=== PATIENT | female | born 1980 | race Caucasian/White ===

== ENCOUNTER → 2018-04-05 08:23 | Outpatient (CLI) | payer OTHER, SELFPAY | PROVIDERS: PCP Family Medicine; Visit Provider Advanced Practice Midwife | DX: O24.419 Gestational diabetes mellitus in pregnancy, unspecified control (principal); Z3A.36 36 weeks gestation of pregnancy | CPT/HCPCS: 59025 ==

== ENCOUNTER → 2018-04-05 14:10 | Outpatient (REF) | payer OTHER, SELFPAY | LOC: LBN 14:10 | PROVIDERS: PCP Family Medicine; Visit Provider Advanced Practice Midwife | DX: Z36.85 Encounter for antenatal screening for Streptococcus B (principal); Z34.93 Encounter for supervision of normal pregnancy, unspecified, third trimester | CPT/HCPCS: 87081 ==

== ENCOUNTER → 2018-04-09 08:20 | Outpatient (CLI) | payer OTHER, SELFPAY | PROVIDERS: PCP Family Medicine; Visit Provider Advanced Practice Midwife | DX: O24.419 Gestational diabetes mellitus in pregnancy, unspecified control (principal); Z3A.36 36 weeks gestation of pregnancy | CPT/HCPCS: 59025 ==

== ENCOUNTER → 2018-04-12 09:29 | Outpatient (CLI) | payer OTHER, SELFPAY | PROVIDERS: PCP Family Medicine; Visit Provider Midwife | DX: O24.410 Gestational diabetes mellitus in pregnancy, diet controlled (principal); O36.63X1 Maternal care for excessive fetal growth, third trimester, fetus 1 | CPT/HCPCS: 59025 ==

== ENCOUNTER → 2018-04-16 09:50 | Outpatient (CLI) | payer OTHER, SELFPAY | PROVIDERS: PCP Family Medicine; Visit Provider Advanced Practice Midwife | DX: O24.419 Gestational diabetes mellitus in pregnancy, unspecified control (principal); Z3A.37 37 weeks gestation of pregnancy | CPT/HCPCS: 59025 ==

== ENCOUNTER → 2018-04-23 09:18 | Outpatient (CLI) | payer OTHER, SELFPAY | PROVIDERS: PCP Family Medicine; Visit Provider Midwife | DX: O24.419 Gestational diabetes mellitus in pregnancy, unspecified control (principal); Z3A.38 38 weeks gestation of pregnancy | CPT/HCPCS: 59025 ==

== ENCOUNTER → 2018-05-03 02:20 | Outpatient (CLI) | payer OTHER, SELFPAY ==
--- NOTE | 2018-05-03 09:38 | DI.REPORT_ITS ---
SYMPTOM/DIAGNOSIS: ? RETAINED PRODUCTS OF CONCEPTION, POST , 086.12 PELVIC ULTRASOUND: Transabdominal and transvaginal examination was performed. The uterus measures 15.3 cm. in length by 8.1 cm. AP by 8.8 cm. transverse. There is complex fluid seen within the endometrial canal. There do appear to be areas of soft tissue distributed within the fluid and along the endometrium. The endometrium and endometrial canal fluid measures 3.4 cm. in diameter. No definite increased blood flow was identified. The right ovary was not visualized transabdominally or transvaginally. The left ovary measures 2.5 by 1.6 by 2.6 cm. and is grossly unremarkable. No free pelvic fluid is appreciated. IMPRESSION: Heterogeneous material seen within the endometrial canal in this patient. The findings are suspicious for hemorrhage. Retained products of conception should also be considered in this patient.
[2018-05-03 10:44] LABS: HCT 36.3 % (36.0-46.0); Mean Corp. HGB Concentration 33.1 g/dL (32.0-36.0); Mean Corpuscular Hemoglobin 28.4 pg (27.0-33.0); Mean Corpuscular Volume 85.8 fL (80-95); Mean Platelet Volume 8.9 fL (8.0-11.0); Platelet Count 354 x1000/uL (130-400); RBC 4.23 m/cumm (4.00-5.20); RBC Distribution Width 15.3 % (11.7-14.6); White Blood Cell Count 8.82 k/cumm (4.4-10.8)
== END ==
PROVIDERS: Advanced Practice Midwife; PCP Family Medicine; Visit Provider Advanced Practice Midwife
DX: O86.12 Endometritis following delivery (principal); N93.9 Abnormal uterine and vaginal bleeding, unspecified; O72.2 Delayed and secondary postpartum hemorrhage
CPT/HCPCS: 36415; 85027; 76830; 76856

== ENCOUNTER 2019-04-22 02:07 | Outpatient (CLI) | payer BC, SELFPAY ==
[2019-04-22 08:35] LABS: Abs Immature Grans 0.02 k/cumm (0.0-0.09); Absolute Basophil Count 0.01 k/cumm (0.0-0.2); Absolute Eosinophil Count 0.15 k/cumm (0.0-0.7); Absolute Lymphocyte Count 2.81 k/cumm (1.2-3.4); Absolute Monocyte Count 0.47 k/cumm (0.11-0.7); Absolute Neutrophil Count 4.05 k/cumm (1.2-6.7); Basophils % 0.1; HCT 37.9 % (36.0-46.0); HGB 12.7 g/dL (12.0-15.5); Immature Grans % 0.3; Lymphocytes % 37.4; Mean Corp. HGB Concentration 33.5 g/dL (32.0-36.0); Mean Corpuscular Hemoglobin 27.8 pg (27.0-33.0); Mean Corpuscular Volume 82.9 fL (80-95); Mean Platelet Volume 9.4 fL (8.0-11.0); Monocytes % 6.3; Neutrophils % 53.9; Platelet Count 329 x1000/uL (130-400); RBC 4.57 m/cumm (4.00-5.20); RBC Distribution Width 14.3 % (11.7-14.6); White Blood Cell Count 7.51 k/cumm (4.4-10.8)
[2019-04-22 09:02] LABS: Diff Comment Diff Reviewed; RBC Morphology Normal
[2019-04-22 09:23] LABS: ALT 17 U/L (12-78); AST 13 U/L (15-37); Albumin 3.4 g/dL (3.4-5.0); Alkaline Phosphatase 71 U/L (46-116); Anion Gap 9.3 mmol/L (3-11); BUN 14 mg/dL (7-18); Bilirubin, Total 0.4 mg/dL (0.2-1.0); CO2 25.7 mmol/L (21.0-32.0); CREATININE 0.83 mg/dL (0.55-1.02); Calcium 8.4 mg/dL (8.5-10.1); Calculated LDL 125 mg/dL; Chloride 103 mmol/L (98-107); Cholesterol 200 mg/dL (50-200); Glucose 99 mg/dL (70-100); HDL Cholesterol 56 mg/dL (40-60); Potassium 3.8 mmol/L (3.5-5.1); Sodium 138 mmol/L (136-145); Triglyceride 99 mg/dL (30-150)
== END 2019-04-22 02:27 ==
PROVIDERS: PCP Family Medicine; Visit Provider Family Medicine
DX: Z00.00 Encounter for general adult medical examination without abnormal findings (principal); Z13.220 Encounter for screening for lipoid disorders; Z13.0 Encounter for screening for diseases of the blood and blood-forming organs and certain disorders involving the immune mechanism; Z13.228 Encounter for screening for other metabolic disorders
CPT/HCPCS: 36415; 80053; 80061; 83721; 85025

== ENCOUNTER 2019-06-06 12:04 | Outpatient (CLI) | payer BC, SELFPAY ==
[2019-06-06 13:07] LABS: Glucose,1 Hr (Glucola) 132 mg/dL (80-140)
[2019-06-06 13:19] LABS: Abs Immature Grans 0.02 k/cumm (0.0-0.09); Absolute Basophil Count 0.02 k/cumm (0.0-0.2); Absolute Eosinophil Count 0.08 k/cumm (0.0-0.7); Absolute Lymphocyte Count 2.12 k/cumm (1.2-3.4); Absolute Monocyte Count 0.47 k/cumm (0.11-0.7); Absolute Neutrophil Count 5.51 k/cumm (1.2-6.7); Basophils % 0.2; HCT 35.3 % (36.0-46.0); HGB 11.9 g/dL (12.0-15.5); Immature Grans % 0.2; Lymphocytes % 25.8; Mean Corp. HGB Concentration 33.7 g/dL (32.0-36.0); Mean Corpuscular Hemoglobin 28.2 pg (27.0-33.0); Mean Corpuscular Volume 83.6 fL (80-95); Mean Platelet Volume 9.3 fL (8.0-11.0); Monocytes % 5.7; Neutrophils % 67.1; Platelet Count 341 x1000/uL (130-400); RBC 4.22 m/cumm (4.00-5.20); RBC Distribution Width 13.8 % (11.7-14.6); White Blood Cell Count 8.22 k/cumm (4.4-10.8)
[2019-06-06 13:40] LABS: *AMPHETAMINES SCREEN URINE Negative (Negative); *BARBITURATES SCREEN URINE Negative (Negative); *BENZODIAZEPINES SCREEN URINE Negative (Negative); Cannabinoids THC Negative (Negative); Cocaine Screen,Urine Negative (Negative); METHADONE URINE SCREEN Negative (Negative); OPIATES URINE SCREEN Negative (Negative)
[2019-06-06 13:44] LABS: TSH (W/Ref FT4) 1.55 uIU/mL (0.36-3.74)
[2019-06-06 13:45] LABS: Tricyclic Antidepressants Negative (Negative)
[2019-06-09 10:35] LABS: Varicella IgG Antibody Positive
[2019-06-09 11:56] LABS: Rubella IgG Ab (UVM) Positive
[2019-06-09 13:35] LABS: Hepatitis B Surface Ag Negative (NEGAT)
[2019-06-09 13:48] LABS: HIV-1/2 Ag & Ab Screen Negative (NEGAT); Hepatitis C Ab w Rflx HCV PCR Negative (NEGAT)
[2019-06-09 15:35] LABS: Syphilis Total Ab w/Reflex Nonreactive (Nonreactive)
[2019-06-11 10:45] LABS: Buprenorphine Negative; Norbuprenorphine Negative
== END 2019-06-06 12:24 ==
PROVIDERS: PCP Family Medicine; Visit Provider Advanced Practice Midwife
DX: Z34.91 Encounter for supervision of normal pregnancy, unspecified, first trimester (principal); Z11.4 Encounter for screening for human immunodeficiency virus [HIV]; Z11.59 Encounter for screening for other viral diseases; Z01.84 Encounter for antibody response examination
CPT/HCPCS: 36415; 80307; 82950; 86787; 86803; 86850; 86900; 86901; 87340; 87389; 84443; 85025; 86762; 86780; 87086

== ENCOUNTER 2019-06-06 12:34 | Outpatient (REF) | payer BC, SELFPAY ==
--- NOTE | 2019-06-06 11:30 | PAPFT_PTH ---
PATIENT: Nathalie Menjivar LOC: [facility] U#:[id number] AGE/SX: 39/F ROOM: RE06/06/[address]: Elma Mora RN : 1980 BED: DIS: 06/06/2019 SPEC #: [id number] RECD: 06/09/19 12:45 STATUS: AMBER REQ #: [id number] FREDERICK: 06/06/19 11:[address]: Elma Mora DEPT: [facility] RECD BY: Tash Lagunas ENTERED: 06/09/19 12:45 SP TYPE: PAPFT OTHR DR: Larry Mcbride MD Tissues: 1 - CX/ENDOCX FOR PAP SMEARS Procedures: PAP THIN PREP/UVM Screening HPV DNA PROBE Comments: [id number]
[2019-06-09 15:46] LABS: Chlamydia Result Negative (Negative); GC Result Negative (Negative); Specimen Description CERVIX
== END 2019-06-06 12:54 ==
LOC: LBN 12:34
PROVIDERS: PCP Family Medicine; Visit Provider Advanced Practice Midwife
DX: Z34.91 Encounter for supervision of normal pregnancy, unspecified, first trimester (principal); Z11.3 Encounter for screening for infections with a predominantly sexual mode of transmission; Z12.4 Encounter for screening for malignant neoplasm of cervix; Z11.51 Encounter for screening for human papillomavirus (HPV)
CPT/HCPCS: 87491; 87591; 88142; 87624

== ENCOUNTER 2019-07-04 12:16 | Outpatient (CLI) | payer BC, SELFPAY ==
[2019-07-07 12:34] LABS: AFP 19.5 ng/mL; Cigarette smoking status non-smoker; GA used in risk estimate Scan estimate; INHIBIN 78 pg/mL; IVF Pregnancy No; Initial or repeat testing Initial testing; Insulin dependent diabetes No; Maternal Weight 232 lbs; Number of Fetuses 1; Physician Phone Number 802-748-7300; Prev Down(T21)/Trisomy Pregnan No; Prev Pregnancy w/NTD No; RECOMMENDED FOLLOW UP None.; Results Summary Normal risk; hCG, TOTAL 27.9 IU/mL; hCG, TOTAL MoM 1.06 MoM; uE3 1.17 ng/mL; uE3 MoM 1.66 MoM
== END 2019-07-04 12:36 ==
PROVIDERS: PCP Family Medicine; Visit Provider Advanced Practice Midwife
DX: Z34.92 Encounter for supervision of normal pregnancy, unspecified, second trimester (principal); Z36.89 Encounter for other specified antenatal screening
CPT/HCPCS: 36415; 81511

== ENCOUNTER 2019-07-23 00:37 | Outpatient (CLI) | payer BC, SELFPAY ==
--- NOTE | 2019-07-23 09:42 | DI.US_ITS ---
EXAM: US OB 2-3 TRIMESTER CLINICAL HISTORY: anatomy survey @ 18 wks Z34.90 SUPERVISION NORMAL TECHNIQUE: Ultrasound performed using standard protocol. COMPARISON: PELVIS TRANSVAG from 05/03/2018 FINDINGS: The fetus is in breech position during the exam. The placenta is anterior. The biometric measureme nts correspond to 19 weeks 0 days. No abnormalities are seen. The amniotic fluid appears visu ally normal. IMPRESSION: survey is within normal limits.
== END 2019-07-23 00:57 ==
PROVIDERS: PCP Family Medicine; Visit Provider Advanced Practice Midwife
DX: Z34.92 Encounter for supervision of normal pregnancy, unspecified, second trimester (principal)
CPT/HCPCS: 76805

== ENCOUNTER 2019-09-26 10:16 | Outpatient (CLI) | payer BC, SELFPAY ==
[2019-09-26 10:42] LABS: HCT 32.8 % (36.0-46.0); HGB 10.7 g/dL (12.0-15.5); Mean Corp. HGB Concentration 32.6 g/dL (32.0-36.0); Mean Corpuscular Hemoglobin 28.1 pg (27.0-33.0); Mean Corpuscular Volume 86.1 fL (80-95); Mean Platelet Volume 8.9 fL (8.0-11.0); Platelet Count 292 x1000/uL (130-400); RBC 3.81 m/cumm (4.00-5.20); RBC Distribution Width 14.2 % (11.7-14.6); White Blood Cell Count 8.58 k/cumm (4.4-10.8)
[2019-09-26 10:54] LABS: Glucose,1 Hr (Glucola) 156 mg/dL (80-140)
== END 2019-09-26 10:36 ==
PROVIDERS: PCP Family Medicine; Visit Provider Advanced Practice Midwife
DX: Z34.93 Encounter for supervision of normal pregnancy, unspecified, third trimester (principal)
CPT/HCPCS: 36415; 82950; 85027; 86850; 90384

== ENCOUNTER 2019-11-07 03:31 | Outpatient (CLI) | payer BC, SELFPAY ==
--- NOTE | 2019-11-07 07:45 | DI.US_ITS ---
EXAM: US OB BETZAIDA UMBILICAL ARTERY CLINICAL HISTORY: GDM, , Z34.90 TECHNIQUE: Ultrasound performed using standard protocol. COMPARISON: US OB 2-3 TRIMESTER from 07/23/2019 FINDINGS: The fetus was in transverse position, head toward the maternal left. The placenta is anterior. The biometric measurements correspond to 35 weeks 5 days which is slightly but above the expected range. The estimated weight is 2857 grams corresponding to the 91st percentile. The amniotic fluid index measures 21.0. Umbilical artery Doppler was performed. Values range between the 50th and 95th percentile. IMPRESSION: Fetus is mildly large for dates. Umbilical artery measurements are within the normal range. DATA REPOSITORY:
== END 2019-11-07 03:51 ==
PROVIDERS: PCP Family Medicine; Visit Provider Obstetrics & Gynecology
DX: O24.419 Gestational diabetes mellitus in pregnancy, unspecified control (principal); O36.63X0 Maternal care for excessive fetal growth, third trimester, not applicable or unspecified; Z3A.35 35 weeks gestation of pregnancy
CPT/HCPCS: 76816; 76820

== ENCOUNTER 2019-11-21 08:36 | Outpatient (CLI) | payer BC, SELFPAY | END 2019-11-21 08:56 | PROVIDERS: PCP Family Medicine; Visit Provider Advanced Practice Midwife | DX: O24.410 Gestational diabetes mellitus in pregnancy, diet controlled (principal); Z3A.35 35 weeks gestation of pregnancy | CPT/HCPCS: 59025 ==

== ENCOUNTER 2019-11-21 10:05 | Outpatient (CLI) | payer BC, SELFPAY ==
[2019-11-21 12:00] LABS: HCT 34.6 % (36.0-46.0); HGB 11.1 g/dL (12.0-15.5); Mean Corp. HGB Concentration 32.1 g/dL (32.0-36.0); Mean Corpuscular Hemoglobin 26.5 pg (27.0-33.0); Mean Corpuscular Volume 82.6 fL (80-95); Platelet Count 293 x1000/uL (130-400); RBC 4.19 m/cumm (4.00-5.20); RBC Distribution Width 14.7 % (11.7-14.6); White Blood Cell Count 8.46 k/cumm (4.4-10.8)
[2019-11-21 14:54] LABS: *AMPHETAMINES SCREEN URINE Negative (Negative); *BARBITURATES SCREEN URINE Negative (Negative); *BENZODIAZEPINES SCREEN URINE Negative (Negative); Cannabinoids THC Negative (Negative); Cocaine Screen,Urine Negative (Negative); METHADONE URINE SCREEN Negative (Negative); OPIATES URINE SCREEN Negative (Negative)
[2019-11-21 14:56] LABS: Tricyclic Antidepressants Negative (Negative)
[2019-11-26 08:33] LABS: Buprenorphine Negative; Norbuprenorphine Negative
== END 2019-11-21 10:25 ==
PROVIDERS: PCP Family Medicine; Visit Provider Advanced Practice Midwife
DX: Z34.93 Encounter for supervision of normal pregnancy, unspecified, third trimester (principal)
CPT/HCPCS: 36415; 80307; 85027

== ENCOUNTER 2019-11-28 09:01 | Outpatient (CLI) | payer BC, SELFPAY | END 2019-11-28 09:21 | PROVIDERS: PCP Family Medicine; Visit Provider Advanced Practice Midwife | DX: O24.410 Gestational diabetes mellitus in pregnancy, diet controlled (principal); Z3A.37 37 weeks gestation of pregnancy | CPT/HCPCS: 59025; 87081 ==

== ENCOUNTER 2019-12-01 10:06 | Observation (INO) | payer BC, SELFPAY | END 2019-12-01 11:40 | disposition home or self-care (01) | PROVIDERS: Admitting Provider Obstetrics & Gynecology; PCP Family Medicine; Visit Provider Obstetrics & Gynecology | DX: O32.1XX0 Maternal care for breech presentation, not applicable or unspecified (principal); Z3A.37 37 weeks gestation of pregnancy; Z53.9 Procedure and treatment not carried out, unspecified reason | CPT/HCPCS: 85027; 86900; 86901; 59025; G0378 ==

== ENCOUNTER 2019-12-02 03:20 | Outpatient (CLI) | payer BC, SELFPAY ==
--- NOTE | 2019-12-02 06:45 | DI.US_ITS ---
EXAM: US OB BETZAIDA WEIGHT CLINICAL HISTORY: interval growth,GESTATIONAL DIABETES,024.419. COMPARISON: US OB 2-3 TRIMESTER from 07/23/2019 US OB BETZAIDA UMBILICAL ARTERY from 11/07/2019 US OB BETZAIDA UMBILICAL ARTERY from 11/07/2019 TECHNIQUE: Transabdominal obstetrical ultrasound performed. FINDINGS: Sonographic images demonstrate a single intrauterine gestation in cephalic position. The placenta is anterior and grade 1-2. The biometric measurements correspond to 40 weeks 0 days, ago again measuring greater than predicted gestational age. The estimated weight is 4028 grams which is above the 90th percentile. The amniotic fluid index is 15.8. cardiac activity is demonstrated at 150 beats per minute. IMPRESSION: size and weight are again noted to be measuring large for gestational age. Has been appropriat e interval growth since the previous exam. DATA REPOSITORY:
== END 2019-12-02 03:40 ==
PROVIDERS: PCP Family Medicine; Visit Provider Advanced Practice Midwife
DX: O24.419 Gestational diabetes mellitus in pregnancy, unspecified control (principal); O36.63X0 Maternal care for excessive fetal growth, third trimester, not applicable or unspecified; Z3A.40 40 weeks gestation of pregnancy
CPT/HCPCS: 76816

== ENCOUNTER 2019-12-02 09:56 | Outpatient (CLI) | payer BC, SELFPAY | END 2019-12-02 10:16 | PROVIDERS: PCP Family Medicine; Visit Provider Advanced Practice Midwife | DX: O24.410 Gestational diabetes mellitus in pregnancy, diet controlled (principal); Z3A.37 37 weeks gestation of pregnancy | CPT/HCPCS: 59025 ==

== ENCOUNTER 2019-12-05 06:55 | Outpatient (CLI) | payer BC, SELFPAY | END 2019-12-05 07:15 | PROVIDERS: PCP Family Medicine; Referring Provider Advanced Practice Midwife; Visit Provider Advanced Practice Midwife | DX: O24.410 Gestational diabetes mellitus in pregnancy, diet controlled (principal); Z3A.37 37 weeks gestation of pregnancy | CPT/HCPCS: 59025 ==

== ENCOUNTER 2019-12-09 09:33 | Inpatient (IN) | payer BC, SELFPAY ==
[2019-12-09 10:13] LABS: HCT 33.6 % (36.0-46.0); Mean Corp. HGB Concentration 32.7 g/dL (32.0-36.0); Mean Corpuscular Hemoglobin 26.7 pg (27.0-33.0); Mean Corpuscular Volume 81.6 fL (80-95); Mean Platelet Volume 9.8 fL (8.0-11.0); Platelet Count 310 x1000/uL (130-400); RBC 4.12 m/cumm (4.00-5.20); RBC Distribution Width 15.1 % (11.7-14.6); White Blood Cell Count 8.28 k/cumm (4.4-10.8)
[2019-12-09] MEDS: miSOPROStol 25 MCG TAB 50 MCG PO (11:00)
[2019-12-09] MEDS: Normal Saline Flush 10 ML SYR IVP (19:45)
[2019-12-09] MEDS: Zolpidem 5 MG TAB 10 MG PO (21:30)
[2019-12-10] MEDS: miSOPROStol 25 MCG TAB 50 MCG PO ×2 (08:25→13:00)
[2019-12-11] MEDS: hydrOXYzine PAMOATE 25 MG CAP 50 MG PO (01:40)
[2019-12-11] MEDS: Lactated Ringers 1,000 ML 125 ML IV ×3 (07:45→14:19)
[2019-12-11] MEDS: FentaNYL/ROPIvacaine 2 mcg/ml and 0.1% 200 ML CADD Cassette EP ×2 (08:30→09:04)
[2019-12-11] MEDS: Acetaminophen 325 MG TAB 650 MG PO (18:01)
[2019-12-11] MEDS: Hamamelis Leaf/Glycerin 100 EACH BOX PR (18:01)
[2019-12-11] MEDS: Ibuprofen 600 MG TAB PO (19:02)
[2019-12-12 07:06] LABS: HCT 29.9 % (36.0-46.0); HGB 9.5 g/dL (12.0-15.5); Mean Corp. HGB Concentration 31.8 g/dL (32.0-36.0); Mean Corpuscular Hemoglobin 26.2 pg (27.0-33.0); Mean Corpuscular Volume 82.4 fL (80-95); Mean Platelet Volume 9.6 fL (8.0-11.0); Platelet Count 250 x1000/uL (130-400); RBC 3.63 m/cumm (4.00-5.20); RBC Distribution Width 15.4 % (11.7-14.6); White Blood Cell Count 8.89 k/cumm (4.4-10.8)
[2019-12-12] MEDS: Acetaminophen 325 MG TAB 650 MG PO (07:58)
[2019-12-12] MEDS: Ibuprofen 600 MG TAB PO (07:58)
== END 2019-12-12 17:30 | disposition home or self-care (01) | DRG 807 ==
LOC: OBS 09:49
PROVIDERS: Admitting Provider Advanced Practice Midwife; PCP Family Medicine; Visit Provider Advanced Practice Midwife
DX: O24.420 Gestational diabetes mellitus in childbirth, diet controlled (principal); Z37.0 Single live birth; Z3A.38 38 weeks gestation of pregnancy; Z79.82 Long term (current) use of aspirin; O70.0 First degree perineal laceration during delivery; O76 Abnormality in fetal heart rate and rhythm complicating labor and delivery; O62.3 Precipitate labor; O69.81X0 Labor and delivery complicated by cord around neck, without compression, not applicable or unspecified; Z87.51 Personal history of pre-term labor
CPT/HCPCS: 36415; 85027; 86850; 86900; 86901; 59025; 86870; J3490

== ENCOUNTER 2020-01-28 11:50 | Outpatient (REF) | payer BC, SELFPAY ==
--- NOTE | 2020-01-28 11:10 | PAPFT_PTH ---
PATIENT: Nathalie Menjivar LOC: [facility] U#:[id number] AGE/SX: 39/F ROOM: RE01/28/[address]: Meena Pa : 1980 BED: DIS: 01/28/2020 SPEC #: [id number] RECD: 01/28/20 12:54 STATUS: AMBER REQ #: [id number] FREDERICK: 01/28/20 11:[address]: Meena Pa DEPT: [facility] RECD BY: Tash Lagunas ENTERED: 01/28/20 12:55 SP TYPE: PAPFT OTHR DR: Larry Mcbride MD Tissues: 1 - CX/ENDOCX FOR PAP SMEARS Procedures: PAP THIN PREP/UVM Screening HPV DNA PROBE Comments: [id number]
== END 2020-01-28 12:10 ==
LOC: LBN 11:50
PROVIDERS: PCP Family Medicine; Visit Provider Advanced Practice Midwife
DX: Z12.4 Encounter for screening for malignant neoplasm of cervix (principal); Z11.51 Encounter for screening for human papillomavirus (HPV)
CPT/HCPCS: 88142; 87624

== ENCOUNTER 2020-03-29 02:27 | Outpatient (CLI) | payer BC, SELFPAY ==
[2020-03-29 08:32] LABS: ALT 24 U/L (14-59); AST 18 U/L (15-37); Albumin 3.5 g/dL (3.4-5.0); Alkaline Phosphatase 74 U/L (46-116); Anion Gap 8.3 mmol/L (3-11); BUN 18 mg/dL (7-18); Bilirubin, Total 0.3 mg/dL (0.2-1.0); CO2 26.7 mmol/L (21.0-32.0); CREATININE 0.92 mg/dL (0.55-1.02); Calcium 9.1 mg/dL (8.5-10.1); Calculated LDL 137 mg/dL (<100); Chloride 107 mmol/L (98-107); Cholesterol 214 mg/dL (<200); Glucose 93 mg/dL (74-106); HDL Cholesterol 53 mg/dL (40-60); Potassium 4.2 mmol/L (3.5-5.1); Sodium 142 mmol/L (136-145); Total Protein 7.1 g/dL (6.4-8.2); Triglyceride 124 mg/dL (<150)
[2020-03-29 08:58] LABS: HCT 38.7 % (36.0-46.0); HGB 12.6 g/dL (12.0-15.5); Mean Corp. HGB Concentration 32.6 g/dL (32.0-36.0); Mean Corpuscular Hemoglobin 26.5 pg (27.0-33.0); Mean Corpuscular Volume 81.5 fL (80-95); Mean Platelet Volume 9.9 fL (8.0-11.0); Platelet Count 303 x1000/uL (130-400); RBC 4.75 m/cumm (4.00-5.20); RBC Distribution Width 14.5 % (11.7-14.6); White Blood Cell Count 6.53 k/cumm (4.4-10.8)
== END 2020-03-29 02:47 ==
PROVIDERS: PCP Family Medicine; Visit Provider Family Medicine
DX: Z00.00 Encounter for general adult medical examination without abnormal findings (principal)
CPT/HCPCS: 36415; 80053; 80061; 85027

== ENCOUNTER 2020-07-26 08:49 | Outpatient (CLI) | payer BC, SELFPAY ==
[2020-07-27 21:19] LABS: Patient Race White; SARS-CoV-2 RNA Undetected (Undetected); SARS-CoV-2 Specimen Source Nasal
== END 2020-07-26 09:09 ==
PROVIDERS: PCP Family Medicine; Visit Provider Family Medicine
DX: Z20.828 Contact with and (suspected) exposure to other viral communicable diseases (principal)
CPT/HCPCS: U0003

== ENCOUNTER 2020-12-02 03:23 | Outpatient (CLI) | payer BC, SELFPAY ==
[2020-12-02 10:33] LABS: Abs Immature Grans 0.01 10^3/uL (0.0-0.06); Absolute Basophil Count 0.02 10^3/uL (0.0-0.2); Absolute Eosinophil Count 0.05 10^3/uL (0.0-0.7); Absolute Monocyte Count 0.31 10^3/uL (0.1-0.8); Absolute Neutrophil Count 5.13 10^3/uL (1.2-6.7); Basophils % 0.3; Eosinophils % 0.7; HCT 35.2 % (36.0-46.0); HGB 11.6 g/dL (11.2-15.7); Immature Grans % 0.1; Lymphocytes % 26.6; MCH 27.2 pg (27.0-33.0); MCV 82.4 fL (80-95); MPV 9.4 fL (8.0-11.0); Monocytes % 4.1; Neutrophils % 68.2; Nucleated RBC 0 %; Platelet Count 304 10^3/uL (130-400); RBC 4.27 10^6/uL (3.93-5.22); RDW 14.3 % (11.7-14.6); RDW-SD 42.4 fL; WBC 7.52 10^3/uL (4.4-10.8)
[2020-12-02 10:40] LABS: Glucose,1 Hr (Glucola) 174 mg/dL (80-140)
[2020-12-02 12:02] LABS: TSH (W/Ref FT4) 1.74 uIU/mL (0.36-3.74)
[2020-12-03 09:35] LABS: Hepatitis B Surface Ag Negative (Negative)
[2020-12-03 09:42] LABS: Varicella IgG Antibody Positive (See Note)
[2020-12-03 09:48] LABS: Rubella IgG Ab (UVM) Positive (See Note)
[2020-12-03 10:06] LABS: Hepatitis C Ab w Rflx HCV PCR Negative (Negative)
[2020-12-03 10:14] LABS: HIV-1/2 Ag & Ab Screen Negative (Negative)
[2020-12-04 15:59] LABS: Syphilis Total Ab w/Reflex Nonreactive (Nonreactive)
== END 2020-12-02 03:24 | disposition home or self-care (01) ==
LOC: LBO 03:23
PROVIDERS: PCP Family Medicine; Visit Provider Advanced Practice Midwife
DX: Z34.91 Encounter for supervision of normal pregnancy, unspecified, first trimester (principal); Z11.4 Encounter for screening for human immunodeficiency virus [HIV]; Z11.59 Encounter for screening for other viral diseases; Z01.84 Encounter for antibody response examination
CPT/HCPCS: 36415; 82950; 86787; 86803; 86850; 86900; 86901; 87340; 87389; 84443; 85025; 86762; 86780

== ENCOUNTER 2020-12-02 10:57 | Outpatient (REF) | payer BC, SELFPAY ==
[2020-12-02 12:43] LABS: *AMPHETAMINES SCREEN URINE Negative (Negative); *BARBITURATES SCREEN URINE Negative (Negative); *BENZODIAZEPINES SCREEN URINE Negative (Negative); Cannabinoids THC Negative (Negative); Cocaine Screen,Urine Negative (Negative); METHADONE URINE SCREEN Negative (Negative); OPIATES URINE SCREEN Negative (Negative)
[2020-12-02 12:45] LABS: Tricyclic Antidepressants Negative (Negative)
[2020-12-03 14:10] LABS: Chlamydia Result Negative (Negative); GC Result Negative (Negative)
[2020-12-08 07:58] LABS: Buprenorphine Negative ng/mL (Cutoff: 5.0); Norbuprenorphine Negative ng/mL (Cutoff: 2.5)
== END 2020-12-02 10:58 | disposition home or self-care (01) ==
LOC: LBN 10:57
PROVIDERS: PCP Family Medicine; Visit Provider Advanced Practice Midwife
DX: Z34.91 Encounter for supervision of normal pregnancy, unspecified, first trimester (principal); Z11.3 Encounter for screening for infections with a predominantly sexual mode of transmission
CPT/HCPCS: 80307; 87491; 87591; 87086

== ENCOUNTER 2020-12-03 03:15 | Outpatient (CLI) | payer BC, SELFPAY ==
--- NOTE | 2020-12-03 07:15 | DI.US_ITS ---
EXAM: US OB 1ST TRIMESTER CLINICAL HISTORY: 12 weeks by LMP, confirm gestatinal age and ANDRE,z3a.12 TECHNIQUE: Ultrasound performed using standard protocol. COMPARISON: US US OB BETZAIDA WEIGHT from 12/02/2019 FINDINGS: Ob ultrasound was performed utilizing 1st trimester protocol. There is a single viable intrauterine gestation. biometry is consistent with gestational age of 14 weeks 4 days and an EDC of Septem willow 27th. heart rate is 157 BPM. Cervical length is 5.7 cm. The distance from the lower placental margin to the cervix is about 3.1 c m. Placenta is unremarkable as visualized. There is a normal quantity of amniotic fluid. IMPRESSION: DATA REPOSITORY:
== END 2020-12-03 03:35 ==
PROVIDERS: PCP Family Medicine; Visit Provider Advanced Practice Midwife
DX: Z34.91 Encounter for supervision of normal pregnancy, unspecified, first trimester (principal)
CPT/HCPCS: 76801

== ENCOUNTER 2021-03-08 04:13 | Outpatient (CLI) | payer BC, SELFPAY ==
[2021-03-08 07:44] LABS: HCT 32.7 % (36.0-46.0); HGB 10.5 g/dL (11.2-15.7); MCH 26.8 pg (27.0-33.0); MCHC 32.1 % (32.0-36.0); MCV 83.4 fL (80-95); MPV 9.5 fL (8.0-11.0); Platelet Count 278 10^3/uL (130-400); RBC 3.92 10^6/uL (3.93-5.22); RDW 14.2 % (11.7-14.6); RDW-SD 43.1 fL; WBC 8.48 10^3/uL (4.4-10.8)
== END 2021-03-08 04:14 | disposition home or self-care (01) ==
LOC: LBO 04:13
PROVIDERS: PCP Nurse Practitioner Family; Visit Provider Advanced Practice Midwife
DX: O36.0130 Maternal care for anti-D [Rh] antibodies, third trimester, not applicable or unspecified (principal); Z01.84 Encounter for antibody response examination; Z3A.28 28 weeks gestation of pregnancy
CPT/HCPCS: 36415; 85027; 86850; 90384

== ENCOUNTER 2021-04-19 09:59 | Outpatient (CLI) | payer BC, SELFPAY ==
[2021-04-19 10:46] LABS: HGB 10.3 g/dL (11.2-15.7); MCH 24.4 pg (27.0-33.0); MCHC 31.2 % (32.0-36.0); MCV 78.2 fL (80-95); MPV 9.6 fL (8.0-11.0); Platelet Count 294 10^3/uL (130-400); RBC 4.22 10^6/uL (3.93-5.22); RDW 14.9 % (11.7-14.6); WBC 8.88 10^3/uL (4.4-10.8)
[2021-04-19 11:03] LABS: ALT 13 U/L (14-59); AST 13 U/L (15-37); Albumin 2.2 g/dL (3.4-5.0); Alkaline Phosphatase 67 U/L (46-116); Anion Gap 11.1 mmol/L (3-11); BUN 11 mg/dL (7-18); Bilirubin, Total 0.3 mg/dL (0.2-1.0); CO2 20.9 mmol/L (21.0-32.0); CREATININE 0.8 mg/dL (0.55-1.02); Calcium 8.8 mg/dL (8.5-10.1); Chloride 106 mmol/L (98-107); Glucose 100 mg/dL (74-106); Potassium 4.2 mmol/L (3.5-5.1); Sodium 138 mmol/L (136-145); Total Protein 6.8 g/dL (6.4-8.2); Uric Acid 5.5 mg/dL (2.6-6.0)
== END 2021-04-19 10:00 | disposition home or self-care (01) ==
LOC: LBO 09:59
PROVIDERS: PCP Nurse Practitioner Family; Visit Provider Advanced Practice Midwife
DX: O24.410 Gestational diabetes mellitus in pregnancy, diet controlled (principal); Z3A.34 34 weeks gestation of pregnancy
CPT/HCPCS: 80053; 85027; 82565; 84156; 84550

== ENCOUNTER 2021-04-19 12:06 | Outpatient (REF) | payer BC, SELFPAY ==
[2021-04-19 14:37] LABS: PROTEIN 54.5 mg/dL
[2021-04-19 14:40] LABS: COMMENT (LAB VIEW ONLY) 160.15 mg/dL; Prot/Crea Ur Ratio 0.34
== END 2021-04-19 12:07 | disposition home or self-care (01) ==
LOC: LBN 12:06
PROVIDERS: PCP Nurse Practitioner Family; Visit Provider Advanced Practice Midwife
DX: O24.410 Gestational diabetes mellitus in pregnancy, diet controlled (principal); Z3A.34 34 weeks gestation of pregnancy
CPT/HCPCS: 82565; 84156

== ENCOUNTER 2021-04-23 07:10 | Outpatient (CLI) | payer BC, SELFPAY ==
[2021-04-23 09:16] VITALS: BP 138/88; PULSE 89; TEMP 36.7
[2021-04-23 09:36] VITALS: BP 139/85; PULSE 93
[2021-04-23 09:46] VITALS: BP 138/88; PULSE 89; RESP 18; TEMP 36.7
--- NOTE | 2021-04-23 10:05 | W.OBNST ---
Date of service: 04/23/21 Time of Service: 10:05 NST Evaluation Reason for NST Reasons for Nonstress Test: GESTATIONAL HYPERTENSION Gestational Age Gestational Age in Weeks and Days: 34 Weeks and 1Days Test and Monitor Explained Test/Monitor Explained: Test Explained, Monitor Explained and Patient Verbalized Understanding NST Information Date on Monitor: 04/23/21 Time on Monitor: 09:18 Date off Monitor: 04/23/21 Time off Monitor: 09:45 Total Time on Monitor: 27 NST Interventions: None NST Evaluation Patient States Movement: Present FHR Baseline: 130 Variability: Moderate 6-25 bpm Accelerations: 15x15 Decelerations: None NST Results: Reactive Note NST Note Note: BETZAIDA is reactive and reassuring. CAT I tracing. Patient denies symptoms of pre-eclampsia. 24 hour urine for protein and creatinine clearance sent to lab today. RTO as indicated. MIGUELINA NST Reviewed and Verified by: Meena Dowell
[2021-04-23 11:00] LABS: PROTEIN 34.9 mg/dL (0.0-11.9)
[2021-04-23 11:03] LABS: TOTAL PROTEIN,URINE TIMED 593.3 mg/24hr (0.0-149.1); Total Volume 1700 ml
== END 2021-04-23 10:03 | disposition home or self-care (01) ==
LOC: BCD 07:12 → OBS 09:14
PROVIDERS: PCP Nurse Practitioner Family; Visit Provider Advanced Practice Midwife
DX: O13.3 Gestational [pregnancy-induced] hypertension without significant proteinuria, third trimester (principal); Z3A.34 34 weeks gestation of pregnancy
CPT/HCPCS: 59025; 82565; 84155; 84156

== ENCOUNTER 2021-04-26 09:43 | Outpatient (CLI) | payer BC, SELFPAY ==
[2021-04-26 09:57] VITALS: BP 138/77; PULSE 85; TEMP 36.8
[2021-04-26 10:24] VITALS: BP 138/77; PULSE 85
[2021-04-26 11:06] LABS: *AMPHETAMINES SCREEN URINE Negative (Negative); *BARBITURATES SCREEN URINE Negative (Negative); *BENZODIAZEPINES SCREEN URINE Negative (Negative); Cannabinoids THC Negative (Negative); Cocaine Screen,Urine Negative (Negative); METHADONE URINE SCREEN Negative (Negative); OPIATES URINE SCREEN Negative (Negative)
[2021-04-26 11:09] LABS: Tricyclic Antidepressants Negative (Negative)
--- NOTE | 2021-04-26 11:21 | W.OBNST ---
Date of service: 04/26/21 Time of Service: 11:21 NST Evaluation Reason for NST Reasons for Nonstress Test: GESTATIONAL HYPERTENSION Gestational Age Gestational Age in Weeks and Days: 34 Weeks and 4Days Test and Monitor Explained Test/Monitor Explained: Test Explained, Monitor Explained and Patient Verbalized Understanding Vital Signs Blood Pressure: 138/77 Pulse: 85 Temperature: 98.2 F NST Information Date on Monitor: 04/26/21 Time on Monitor: 09:58 Date off Monitor: 04/26/21 Time off Monitor: 10:22 Total Time on Monitor: 24 NST Interventions: None NST Evaluation Patient States Movement: Present FHR Baseline: 135 Variability: Moderate 6-25 bpm Accelerations: 15x15 Decelerations: None NST Results: Reactive Note NST Note Note: The same way today patient seen on the center for surveillance with nonstress testing due to gestational diabetes and preeclampsia, without severe features. She has category 1 strip and reactive NST today. She is having no contractions. Bedside ultrasound performed showed vertex with an oblique lie in the head is in the right lower quadrant of the pelvis. Ample fluid is identified. She will have bedside ultrasound with each nonstress test and at onset of labor or induction to verify vertex position. Patient understands these findings today and will be seen back for her next nonstress test in 3 to 4 days. NST Reviewed and Verified by: Tressa England
[2021-04-26 11:22] VITALS: BP 138/77; PULSE 85; TEMP 36.8
[2021-04-30 10:38] LABS: Buprenorphine Negative ng/mL (Cutoff: 5.0); Norbuprenorphine Negative ng/mL (Cutoff: 2.5)
== END 2021-04-26 10:32 | disposition home or self-care (01) ==
LOC: BCD 09:43 → OBS 09:51
PROVIDERS: PCP Nurse Practitioner Family; Visit Provider Obstetrics & Gynecology
DX: O13.3 Gestational [pregnancy-induced] hypertension without significant proteinuria, third trimester (principal); O24.410 Gestational diabetes mellitus in pregnancy, diet controlled; Z3A.34 34 weeks gestation of pregnancy
CPT/HCPCS: 80307; 59025; 87081

== ENCOUNTER 2021-04-29 13:39 | Outpatient (CLI) | payer BC, SELFPAY ==
[2021-04-29 21:07] VITALS: BP 138/83; PULSE 87
[2021-04-29 21:10] VITALS: BP 138/83; PULSE 87; TEMP 36.7
--- NOTE | 2021-04-30 19:16 | W.OBNST ---
Date of service: 04/29/21 Time of Service: 22:00 NST Evaluation Reason for NST Reasons for Nonstress Test: GESTATIONAL HYPERTENSION Gestational Age Gestational Age in Weeks and Days: 35 Weeks and 4Days Test and Monitor Explained Test/Monitor Explained: Test Explained, Monitor Explained and Patient Verbalized Understanding Vital Signs Blood Pressure: 138/83 Pulse: 87 Temperature: 98.1 F NST Information Date on Monitor: 04/29/21 Time on Monitor: 21:00 Date off Monitor: 04/29/21 Time off Monitor: 21:20 Total Time on Monitor: 20 NST Interventions: None NST Evaluation Patient States Movement: Present FHR Baseline: 140 Variability: Moderate 6-25 bpm Accelerations: 15x15 Decelerations: None NST Results: Reactive Note NST Note NST Reviewed and Verified by: Sherice Mota
[2021-04-30 19:17] VITALS: BP 138/83; PULSE 87; TEMP 36.7
== END 2021-04-29 21:25 ==
LOC: BCD 13:39 → OBS 21:03
PROVIDERS: PCP Nurse Practitioner Family; Visit Provider Advanced Practice Midwife
DX: O13.3 Gestational [pregnancy-induced] hypertension without significant proteinuria, third trimester (principal); Z3A.35 35 weeks gestation of pregnancy
CPT/HCPCS: 59025

== ENCOUNTER 2021-05-03 01:15 | Outpatient (CLI) | payer BC, SELFPAY ==
--- NOTE | 2021-05-03 | DI.US_ITS ---
Exam(s) US OB BIOPHYSICAL PROFILE EXAM: US OB BIOPHYSICAL PROFILE CLINICAL HISTORY: verbal order TECHNIQUE: Ultrasound biophysical profile performed using standard protocol. COMPARISON: US US OB F/U FACIAL/LVOT/RVOT from 03/08/2021 FINDINGS: ULTRASOUND BIOPHYSICAL PROFILE: Number of fetuses: One. position: Transverse with the head to the right. heart rate: 140 bpm. Placental grade: 2 Placental location: Fundal and posterior. No evidence of previa. Ultrasound gestational age: 37 weeks 3 days. Estimated weight: 3255 Grams. This corresponds to 95 percentile. Estimated date of delivery: 05/21/2021 based on ultrasound. Amniotic fluid index: 23.3 cm. BIOPHYSICAL PROFILE SCORE: breathin out of 2 movement: 2 out of 2 tone: 2 out of 2 Amniotic fluid: 2 out of 2 Overall biophysical profile score: 8 out of 8. IMPRESSION: Single live intrauterine gestation. Biophysical profile 8 out of 8. DATA REPOSITORY:
--- NOTE | 2021-05-03 06:45 | DI.US_ITS ---
Exam(s) US OB BETZAIDA WEIGHT EXAM: US OB BETZAIDA WEIGHT CLINICAL HISTORY: growth,betzaida,bpp,h/o macrosomia,gd,O09.299. TECHNIQUE: Transabdominal obstetrical ultrasound performed. COMPARISON: US US OB 2-3 TRIMESTER from 01/19/2021 US US OB F/U FACIAL/LVOT/RVOT from 03/08/2021 FINDINGS: Transabdominal obstetrical ultrasound performed. FINDINGS: Number of fetuses: One. position: Transverse with head to the right. Placental location: Posterior and fundal. This is a grade 2 placenta. No evidence of previa. BIOMETRIC DATA: BPD: 91 mm = 37 weeks 0 days. HC: 331 mm = 37 weeks 5 days. AC: 339 mm = 37 weeks 5 days. FL: 73 mm = 37 weeks 3 days. EFW: 3255 grms 95% Composite Age: 37 weeks 3 days EDC: 05/21/2021 Heart Rate: 140BPM Amniotic fluid index: 23.3 cm. Visually, amount of fluid is within normal limits. IMPRESSION: 1. Single live intrauterine gestation as above. 2. Estimated weight is 3255gms. 3. Amniotic fluid index is 23.3 cm. Visually within normal limits. DATA REPOSITORY:
[2021-05-03 21:05] VITALS: BP 136/79; PULSE 88; RESP 18; TEMP 36.8
[2021-05-03 21:24] VITALS: BP 136/79; PULSE 88; TEMP 36.8
[2021-05-04 00:41] VITALS: BP 136/79; PULSE 88; TEMP 36.8
--- NOTE | 2021-05-04 00:41 | W.OBNST ---
Date of service: 05/04/21 Time of Service: 00:41 NST Evaluation Reason for NST Reasons for Nonstress Test: GDM-DIET CONTROLLED and ADVANCED MATERNAL AGE Gestational Age Gestational Age in Weeks and Days: 35 Weeks and 4Days Test and Monitor Explained Test/Monitor Explained: Test Explained Vital Signs Blood Pressure: 136/79 Pulse: 88 Temperature: 98.2 F NST Information Date on Monitor: 05/03/21 Time on Monitor: 21:04 Date off Monitor: 05/03/21 Time off Monitor: 22:24 Total Time on Monitor: 80 NST Interventions: Reposition Patient NST Evaluation Patient States Movement: Present FHR Baseline: 135 Variability: Moderate 6-25 bpm Accelerations: 15x15 Decelerations: None NST Results: Reactive Note NST Note NST Reviewed and Verified by: Sherice Mota
== END 2021-05-03 21:35 | disposition home or self-care (01) ==
LOC: DI 01:15 → OBS 21:01
PROVIDERS: PCP Nurse Practitioner Family; Visit Provider Advanced Practice Midwife
DX: O09.293 Supervision of pregnancy with other poor reproductive or obstetric history, third trimester (principal); O24.410 Gestational diabetes mellitus in pregnancy, diet controlled; O13.3 Gestational [pregnancy-induced] hypertension without significant proteinuria, third trimester
CPT/HCPCS: 76815; 76816; 76819

== ENCOUNTER 2021-05-04 12:34 | Outpatient (CLI) | payer BC, SELFPAY ==
[2021-05-04 12:56] LABS: Source Nasal/Nares
[2021-05-04 13:50] LABS: COVID-19 PCR Negative (Negative)
== END 2021-05-04 12:35 | disposition home or self-care (01) ==
LOC: BCD 12:36
PROVIDERS: PCP Nurse Practitioner Family; Visit Provider Obstetrics & Gynecology Gynecology
DX: Z20.822 Contact with and (suspected) exposure to COVID-19 (principal); Z01.812 Encounter for preprocedural laboratory examination
CPT/HCPCS: 87635

== ENCOUNTER 2021-05-05 08:00 | Observation (INO) | payer BC, SELFPAY ==
[2021-05-05 09:06] VITALS: BP 140/75; PULSE 86; RESP 18; TEMP 36.5
--- NOTE | 2021-05-05 09:26 | W.OBVERSION ---
Date of service: 05/05/21 Time of Service: 09:26 Version Note Version Note DATE OF PROCEDURE: 05/05/21 PRE-OP DIAGNOSES: GDM, pre-eclampsia POST-OP DIAGNOSES: same PROCEDURE: external cephalic version SURGEON: Jennifer Mora Anesthesia: none Complications: None Patient was transported to: no change Patient's condition: stable Indications: 36+w EGA with unstable lie who was counseled regarding ECV and has given verbal consent to the procedure. Pt was placed in dorsal supine position and bedside trans-abdominal u/s confirmed fetus in transverse position with head to maternal right and spine up. She did not require an IV or administration of Terbutaline. Once NST had been performed and determined to be category 1 a single hand was applied over the position of the head and gentle downward traction was used to direct the head in counter clockwise direction. The head was easily moved into the cephalic postion and confirmed by bedside ultrasound. Following the version patient remained on monitor and reactive NST was obtained. She was discharged to home with instructions to continue in knee chest position as much as possible prior to planned admission on 05/09/21. Pre/Post Procedure NST Pre-Procedure NST Time on Monitor: 80 Post Procedure NST Time on Monitor: 45 Contraction Frequency: rare Patient States Movement: Present Variability: Moderate 6-25 bpm Decelerations: None NST Results: Reactive
== END 2021-05-05 09:53 | disposition home or self-care (01) ==
PROVIDERS: Admitting Provider Obstetrics & Gynecology Gynecology; PCP Nurse Practitioner Family; Visit Provider Obstetrics & Gynecology Gynecology
DX: O32.1XX0 Maternal care for breech presentation, not applicable or unspecified (principal); Z3A.36 36 weeks gestation of pregnancy; O24.419 Gestational diabetes mellitus in pregnancy, unspecified control; O14.93 Unspecified pre-eclampsia, third trimester
CPT/HCPCS: 59412; 36415; 86850; 90384; 96372; G0378

== ENCOUNTER 2021-05-09 09:28 | Inpatient (IN) | payer BC, SELFPAY ==
[2021-05-09] VITALS (9 sets, daily range): BP systolic 130–144; BP diastolic 84–98; PULSE 93–103; RESP 16; TEMP 36.5–37; BMI 39.2
--- NOTE | 2021-05-09 09:32 | HPE_ITS ---
Date of service: 05/09/21 Time of Service: 09:32 Assessment and Plan Assessment and plan (1) Pre-eclampsia affecting , antepartum: Status: Acute Assessment and plan: CBC, CMP, drawn with admission for induction if ECV is able to be performed successfully No severe features Proteinuria already established Induction with pitocin planned if ECV is successful. patient is aware of risks,benefits and alternatives to IOL and agrees to move forward. MIGUELINA (2) History of hemorrhage, currently : Status: Acute Assessment and plan: will be prepared for PPH with active management of third stage and will consult with MD about cross match timing if indicated (3) Advanced maternal age (AMA) in : Status: Acute Assessment and plan: induction of labor planned. MIGUELINA (4) Rh negative state in antepartum period: Status: Acute Assessment and plan: received Rhogam after ECV on 05/06/21 will be aware the screen will likely reflect that dose (5) Diabetes mellitus affecting : Status: Acute Assessment and plan: CMP on admission, will be NPO until ECV completed then will do BG monitoring per MD recommnedation (6) Transverse lie of fetus: Status: Acute Assessment and plan: Dr. England plans to attempt External Cephalic Verson (was previously successful on 05/05/[address] Mora but baby did not remain cephalic. Plan for potential C/S if unsuccessful or if indicated by maternal status Patient verbalizes understanding of risks, benefits and alternatives and agrees to try ECV IV in place, labs drawn. Dr. England will coordinate plan for ECV. MIGUELINA OB-HPI Labor/Delivery History of Present Illness Reason for Visit: Pre-existing diabetes affercting , AMA, Chief Complaint: Scheduled Induction of Labor Indication for Induction: Chronic Maternal Diabetes, PreEclampsia and Other (AMA over 40). ANDRE Calculator Estimated Delivery Date Method Current WG Current Estimate 05/30/21 Ultrasound #1 37w 0d Other Estimates 06/06/21 LMP (Certain) 36w 0d Comments: Nathalie is here for ECV if indicated by position on arrival and then induction of labor if cephalic per Dr. England's recommendation. History of Present Expected Delivery Route/Plan - CNM/ [facility], CNM managed delivery FOB/ - Kip Ruskin Pre-gestational DM dx'ed at 14 wks, IOL at or prior to 39 wks anticipated BB- no circ Henri Specific Issues/Plan 1. AMA - offer level 2 sono [place] [facility] [place]. Known CF screen negative.- Declines serum testing, declines level II US 2. BMI 36 with hx macrosomia x2 and GDM; early glucola - 174, pt declines 3 hr GTT. will begin QID testing 3. Close pregnancies - conception at 8-9 months 4. Advised to start low dose ASA 81mg/162 mg alternating daily for elevated BMI & AMA 5. Hx macrosomia w/shoulder dystocia 2nd delivery. No SD with 9-'6 (4th baby) 6. Rh neg; 28 wk RhoGam done 03/08/21 7. History Ulcerative Colitis. In remission during . No meds since 2006. 8. History Abnormal paps with pos. HPV- neg pap 01/2020 9. History of gestational diabetes - early 1-hr GTT- 174, will start QID testing 10. History of PP hemorrhage with transfusion- I.V. access in labor 11.Low lying placenta- repeat US at 28 weeks. Done 03/08, resolved, tip now >4 cm from os Assessment: History Reviewed & Current Informed Consent Informed Consent: Section Delivery, Induction of Labor and Other (ECV ) Review of Systems All systems reviewed & are unremarkable except as noted in HPI and below PFSH Medical History 2 weeks follow-up ASCUS with positive high risk HPV BMI 36.0-36.9,adult Family history of ovarian cancer History of gestational diabetes mellitus (GDM) History of gestational hypertension affected by growth restriction Ulcerative colitis Surgical History Dilation and curettage (05/09/17) D&C for missed AB @ 7w6d. [facility] Family History Mother Ovarian cancer 64 Diabetes borderline Father Essential hypertension Hyperlipidemia Sister No problems noted. Maternal Grandfather , in his 50s Colon cancer Paternal Grandfather , in his 70s Stroke Maternal Grandmother , age 75 Cancer female Paternal Grandmother , age 90 No problems noted. MATERNAL UNCLE/AUNT Diabetes Daughter No problems noted. Daughter No problems noted. Other Family history of diabetes mellitus Family history of ovarian cancer Social History Smoking/Tobacco Use Status: Never Second Hand Exposure: No Smoking risk assessment performed?: Yes Alcohol Intake: never Drug use: Never Substance use type: does not use Caregiver/Support person: No Household members: spouse and children Housing: house Pets and animals: Yes Pets and animals: cat(s) Sexually active: Yes Do you think of yourself as: straight/heterosexual Current gender identity: female What is your relationship status?: How often do you talk on the phone with friends or family?: three or more times per week How often do you get together with friends or relatives?: once per week How often do you attend buddhist or holiness services?: 1-3 times per year Do you belong to any clubs or organized social groups?: no Panel score (0-1 are the most socially isolated patients): 2 What type of physical activity do you participate in: walking Duration: 15-30 minutes/day Frequency: 1-2 times per week Rita/Quaker: [employer] Special rita needs: No Seatbelt use: always Helmet use: Yes Helmet use: always Drive intox or ride w/intox shuttle driver: No Working smoke detector in home: No Female Reproductive History Menstrual control method: none History History 6 Para 4 Hx # Term Pregnancies 4 Multiple births 0 Hx # Pregnancies 0 Ectopic pregnancies 0 AB induced 0 Hx Number of Living Children 4 AB spontaneous 1 Past Pregnancies Del. Date GA/Weeks # Outcome Route Wgt Sex Labor Lgth Anesthes ia Location Prov Complic 12/31/04 36 No Successful vaginal 7 lb 13 oz Female 9 hrs dexter, n.h dr. mason hemorrhage 11/13/06 39 No Successful vaginal 9 lb 13 oz Female 5hrs [facility] lisa tai cnm shoulder dystocia 04/26/18 39 No Successful vaginal 8 lb 10 oz Female 8 hr [facility] aj khan cnm 12/11/19 38 No Successful vaginal 9 lb 6 oz Male 12 hours [facility] Delivery Date: 12/31/04 transfused x 2 units w/o reaction. probable chorio as per placental cx. pt delivered at [facility] after being shipped [address] [facility]. Elma Mora Delivery Date: 11/13/06 w/ s/d maneuvers delivery occurred. obtain delivery record of delivery. Elma Mora Delivery Date: 04/26/18 iol for gdm and lga. w/o delivery complications Elma Mora Delivery Date: 12/11/19 IOL,nuchal cord, miso and pitocin, epidural Meena Ashby Medjuan Allergies and Home Medications Allergies Allergy/AdvReac Type Severity Reaction Status Date / Time No Known Drug Allergies Allergy Unknown Verified 05/09/21 09:37 Home Medications Medication Instructions Recorded Confirmed Type cholecalciferol (vitamin D3) 100 4,000 unit PO DAILY 06/07/18 05/09/21 History mcg (4,000 unit) capsule aspirin 81 mg chewable tablet 81 mg PO DAILY 12/29/20 05/09/21 History prenat.vits,pietro,aoy-ujeo-tbtzv 1 tab PO DAILY 01/26/21 05/09/21 History magnesium 250 mg tablet 500 mg PO DAILY PRN tab 03/08/21 05/09/21 History blood sugar diagnostic #100 ea 04/07/21 05/09/21 Rx Exam Physical Exam Vital signs: Pulse BP 102 H 141/98 H 05/09/21 09:26 05/09/21 09:26 Vital Signs Reviewed: Yes Notable Details: will repeat CMP due to pre-eclampsia Constitutional Constitutional: no acute distress and obese Detailed Labor and Delivery Exam Al Score: Cervical Points Exam 0 1 2 3 Dilation Closed 1-2cm 3-4 cm 5-6cm Effacement 0-30% 40-50% 60-70% 80% Consistency Firm Medium Soft Station -3 -2 -1,0 +1,+2 Position Posterior Mid Anterior AL Score(Cervical Ripeness Score): 4 Contraction Frequency(min): 0 Contraction Duration(sec): 0 Comments: Al score is based on admission on exam by Dr. England on 04/26/21 2/50/ soft. Not cephalic on that day. KH Fetus A Heart Rate Baseline: 130 Monitor Accelerations: 15 X 15 Monitor Decelerations: None Variability: Moderate (6-25 BPM) Presentation: Transverse Lie (head to maternal left) Categories: Category I Est. Weight: 7 lb HEENT Exam HEENT Exam: Normal Neck Exam Neck Exam: Normal Chest/Brest/Axilla Exam Chest Exam: Normal Breast Exam Breast Exam: Normal Respiratory Exam Respiratory Exam: Normal Cardiovascular Exam Cardiovascular Exam: Abnormal (HTN, no severe range BP at time of admission. MIGUELINA) Abdominal Exam Abdominal Exam: Abnormal (poor muscle tone) Rectal Exam Rectal Exam: Not Done Exam Exam: Not Done (will defer exam until after ECV and if successful pitocin is begun in attempt to maintain cephalic presentation. MIGUELINA) Extremities Exam Extremities Exam: Normal Back/Spine/Pelvis Exam Back Exam: Not Done Pelvis Adequate: Yes Skin Exam Skin Exam: Normal Neurological Exam Neurological Exam: Normal Psychiatric Exam Psychiatric Exam: Normal Results Results Group Beta Strep: Negative Blood Type: A- Rubella Status: Immune Varicella Immunity: Immune Abnormal Lab Findings: recent 24 hour urine protein 595.3 Risk Assessment Risk for Shoulder Dystocia Historical/Initial OB: POSITIVE FOR: Pre- BMI>30, Previous Shoulder Dystocia and Previous Macrosomia; NEGATIVE FOR: Pelvic Abnormality 40 Weeks: NEGATIVE FOR: EFW> 4500 gms, Maternal Weight Gain >40lb or Post Dates Increased Risk?: Yes Delivery Plan @ 40 wks: based on history of shoulder dystocia and unstable lie, there is increased risk, patient is aware of maneuvers needed and that if baby does not remain cephalic after ECV or we are unable to successfully do ECV to cephalic presentation that may be recommended. MIGUELINA Risk for Pre-Eclampsia Date Initiated/Initials: start 11/23/20 jk Yes, if one or more: NEGATIVE FOR: Hx Pre-E/Gest HTN, Chronic HTN, Multiple Gestation, Pre-gestational DM, Renal Disease, Systemic Lupus or APA Syndrome Yes, if 2 or more: POSITIVE FOR: Age>= 35 yrs and BMI>30; NEGATIVE FOR: Nulliparity, >10yr btwn pregnancies, ethinicty, Mother/Sister w/ Pre-E or Previous IUGR Risk for Post- Hemorrhage Initial: POSITIVE FOR: Previous PPH; NEGATIVE FOR: Multiple Gestation, Known Clotting Deficiency, Grand Multiparity or Anticoagulation Interventions: h/o pph transfused x 2 units Counseled re: Active Management: Yes Date/Initials: 06/06/19 al Risks Reviewed Risks Reviewed Upon Admission: Yes
[2021-05-09 10:25] LABS: HCT 31.4 % (36.0-46.0); HGB 9.7 g/dL (11.2-15.7); MCH 24.1 pg (27.0-33.0); MCHC 30.9 % (32.0-36.0); MCV 77.9 fL (80-95); MPV 10.5 fL (8.0-11.0); Platelet Count 315 10^3/uL (130-400); RBC 4.03 10^6/uL (3.93-5.22); RDW 15.4 % (11.7-14.6); RDW-SD 43.7 fL; WBC 9.08 10^3/uL (4.4-10.8)
[2021-05-09 10:38] LABS: ALT 12 U/L (14-59); AST 13 U/L (15-37); Albumin 2.3 g/dL (3.4-5.0); Alkaline Phosphatase 84 U/L (46-116); Anion Gap 10.2 mmol/L (3-11); BUN 12 mg/dL (7-18); Bilirubin, Total 0.3 mg/dL (0.2-1.0); CO2 20.8 mmol/L (21.0-32.0); CREATININE 0.9 mg/dL (0.55-1.02); Calcium 9.2 mg/dL (8.5-10.1); Chloride 105 mmol/L (98-107); Glucose 116 mg/dL (74-106); Potassium 4.3 mmol/L (3.5-5.1); Sodium 136 mmol/L (136-145)
[2021-05-09 10:57] LABS: Source Nasal/Nares
--- NOTE | 2021-05-09 11:02 | GCONE_ITS ---
Date of service: 05/09/21 Time of Service: 11:02 Assessment and Plan Assessment and plan (1) Pre-eclampsia affecting , antepartum: Status: Acute Assessment and plan: Patient is at 38 weeks gestation with preeclampsia without severe features. She also has pregestational diabetes which has been controlled with diet. Baby is in an unstable lie and we will proceed with external cephalic version. If you able to george the baby to a vertex presentation, augmentation of labor with Pitocin will be undertaken. Anesthesia has been notified and consulted. She does have a history of previous delivery in the past with hemorrhage, in light of all of her confounding factors, she will have a second IV started. Laboratory studies were reviewed and are normal at this point. Her hemoglobin is somewhat low at 9.7. She will be typed and screened with the availability of crossmatch if needed. (2) Diabetes mellitus affecting : Status: Acute (3) Transverse lie of fetus: Status: Acute (4) Advanced maternal age (AMA) in : Status: Acute (5) BMI 36.0-36.9,adult: Status: Acute (6) Rh negative state in antepartum period: Status: Acute History of Present Illness History of Present Illness Chief Complaint: Labor induction at 38 weeks due to preeclampsia Narrative: Patient is a 41-year-old female who has been comanaged by our ma dwifery service along with physicians. She is of advanced maternal age, has pregestational diabetes, preeclampsia without severe symptoms, and is 38 weeks gestation. She has had a somewhat complicated previous obstetric course with a previous history of hemorrhage in the past delivery which did require a transfusion. She has had good movement, appropriate surveillance and fetus with an unstable lie. She had an external cephalic version performed last week, on presentation today, baby is again with vertex in the left transverse position. We discussed the risk benefits and alternatives of again performing external cephalic version, followed by augmentation of labor with Pitocin. She also understands the risk of rupture with unstable lie which could lead to cord prolapse or abnormal presentation. In light of these factors, second IV will be started. Anesthesia consultation will be undertaken. We will cautiously progress with labor induction if we are able to transition this baby to a vertex position. Consults Consult date: 05/09/21 Requesting physician: Meena Dowell Review of Systems All systems reviewed & are unremarkable except as noted in HPI and below Constitutional Constitutional: Reports as per HPI and Reports system reviewed and no additional complaints, except as documented Cardiovascular Cardiovascular: Reports system reviewed and no additional complaints, except as documented Respiratory Respiratory: Reports system reviewed and no additional complaints, except as d ocumented Genitourinary Genitourinary: Reports system reviewed and no additional complaints, except as documented Psychiatric Psychiatric: Reports system reviewed and no additional complaints, except as documented [facility] Medical History 2 weeks follow-up ASCUS with positive high risk HPV BMI 36.0-36.9,adult Family history of ovarian cancer History of gestational diabetes mellitus (GDM) History of gestational hypertension affected by growth restriction Ulcerative colitis Surgical History Dilation and curettage (05/09/17) D&C for missed AB @ 7w6d. aoc Family History Mother Ovarian cancer 64 Diabetes borderline Father Essential hypertension Hyperlipidemia Sister No problems noted. Maternal Grandfather , in his 50s Colon cancer Paternal Grandfather , in his 70s Stroke Maternal Grandmother , age 75 Cancer female Paternal Grandmother , age 90 No problems noted. MATERNAL UNCLE/AUNT Diabetes Daughter No problems noted. Daughter No problems noted. Other Family history of diabetes mellitus Family history of ovarian cancer Social History Smoking/Tobacco Use Status: Never Second Hand Exposure: No Smoking risk assessment performed?: Yes Alcohol Intake: never Drug use: Never Substance use type: does not use Caregiver/Support person: No Household members: spouse and children Housing: house Pets and animals: Yes Pets and animals: cat(s) Sexually active: Yes Do you think of yourself as: straight/heterosexual Current gender identity: female What is your relationship status?: How often do you talk on the phone with friends or family?: three or more times per week How often do you get together with friends or relatives?: once per week How often do you attend yazidi or scientology services?: 1-3 times per year Do you belong to any clubs or organized social groups?: no Panel score (0-1 are the most socially isolated patients): 2 What type of physical activity do you participate in: walking Duration: 15-30 minutes/day Frequency: 1-2 times per week Rita/Latter Day: Jewish Special rita needs: No Seatbelt use: always Helmet use: Yes Helmet use: always Drive intox or ride w/intox port cdl a driver: No Working smoke detector in home: No Do you feel safe at home: Yes Do you feel safe in your relationship?: Yes Female Reproductive History Menstrual control method: none History History 6 Para 4 Hx # Term Pregnancies 4 Multiple births 0 Hx # Pregnancies 0 Ectopic pregnancies 0 AB induced 0 Hx Number of Living Children 4 AB spontaneous 1 Past Pregnancies Del. Date GA/Weeks # Outcome Route Wgt Sex Labor Lgth Anesthes ia Location Prov Complic 12/31/04 36 No Successful vaginal 7 lb 13 oz Female 9 hrs [place], [facility] mason hemorrhage 11/13/06 39 No Successful vaginal 9 lb 13 oz Female 5hrs [facility] shoulder dystocia 04/26/18 39 No Successful vaginal 8 lb 10 oz Female 8 hr [facility] aj khan cn 12/11/19 38 No Successful vaginal 9 lb 6 oz Male 12 hours [facility] Delivery Date: 12/31/04 transfused x 2 units w/o reaction. probable chorio as per placental cx. pt delivered at [place] after being shipped from [facility]. Elma Mora Delivery Date: 11/13/06 w/ s/d maneuvers delivery occurred. obtain delivery record of delivery. Elma Mora Delivery Date: 04/26/18 iol for gdm and lga. w/o delivery complications [facility] Delivery Date: 12/11/19 IOL,nuchal cord, miso and pitocin, epidural Meena Ashby Exam Const General: cooperative, healthy appearing, comfortable, no acute distress, well developed and well groomed Nutritional Appearance: overweight Orientation: alert and oriented x3 Eyes General: appearance normal, both eyes and all related structures Resp Effort & Inspection: normal respiratory effort Cardio Rate: regular rate Rhythm: regular rhythm Other: It was a transverse lie, head to the left lower quadrant. Uterus soft, nontender. Skin General skin exam: no rashes or lesions noted Extrem General: normal to inspection and no calf tenderness bilaterally Results Last Vital Signs Temp 98.2 F 05/09/21 09:28 Pulse 102 H 05/09/21 09:28 Resp 16 05/09/21 09:28 BP 141/98 H 05/09/21 09:28 Labs Result diagrams: 05/09/21 10:17 05/09/21 10:17 Labs: Laboratory Results - last 24 hr 05/09/21 05/09/21 05/09/21 09:40 10:17 10:17 WBC 9.08 RBC 4.03 Hgb 9.7 L Hct 31.4 L MCV 77.9 L MCH 24.1 L MCHC 30.9 L RDW 15.4 H Plt Count 315 MPV 10.5 Sodium Potassium Chloride Carbon Dioxide Anion Gap BUN Creatinine Estimated GFR/1.73 m2 Glucose Calcium Total Bilirubin AST ALT Alkaline Phosphatase Total Protein Albumin COVID-19 Source Nasal/Nares Patient ABO/Rh A Negative Antibody Screen POSITIVE 05/09/21 10:17 WBC RBC Hgb Hct MCV MCH MCHC RDW Plt Count MPV Sodium 136 Potassium 4.3 Chloride 105 Carbon Dioxide 20.8 L Anion Gap 10.2 BUN 12 Creatinine 0.9 Estimated GFR/1.73 m2 >= 60.00 Glucose 116 H Calcium 9.2 Total Bilirubin 0.3 AST 13 L ALT 12 L Alkaline Phosphatase 84 Total Protein 7.0 Albumin 2.3 L COVID-19 Source Patient ABO/Rh Antibody Screen
--- NOTE | 2021-05-09 11:49 | W.ANESVAS ---
Peripheral IV Placement Date Performed: 05/09/21 Procedure Time: 11:11 Requesting Provider: Tressa England Procedure Location: Obstetrics Sedation Given (Indicate Dose Given): No Sedation given Patient Mental Status: Awake Laterality: Left Insertion Site: Forearm Size & Type: 18 ga. (1.88 in) Dressing: IV Dressing Placed, Tegaderm Applied and Statlock Applied Ultrasound: Sterile probe cover and gel used Ultrasound Image Saved?: Yes Number of Attempts (See previous attempts in note section): 0 Procedure Tolerated: No Complications and Patient tolerated well Procedure Outcome: Successful Performed By: Darian Esparza
--- NOTE | 2021-05-09 11:51 | ANES.PREOP_ITS ---
General Info Date of Service Date Performed: 05/09/21 Height: 5 ft 8.11 in Weight: 117.48 kg Body Mass Index (BMI): 39.2 Meds Allergies and Home Medications Allergies Allergy/AdvReac Type Severity Reaction Status Date / Time No Known Drug Allergies Allergy Unknown Verified 05/09/21 11:14 Home Medication Medication Instructions Recorded cholecalciferol (vitamin D3) 100 4,000 unit PO DAILY 06/07/18 mcg (4,000 unit) capsule aspirin 81 mg chewable tablet 81 mg PO DAILY 12/29/20 prenat.vits,pietro,chz-quoz-lctaa 1 tab PO DAILY 01/26/21 magnesium 250 mg tablet 500 mg PO DAILY PRN tab 03/08/21 blood sugar diagnostic #100 ea 04/07/21 Current Visit Medications: Current Medications Generic Name Dose Route Start Last Admin Trade Name Freq PRN Reason Stop Dose Admin Sodium Chloride 500 mls @ 0 mls/hr 05/09/21 09:28 Saline 500ml Bag IV PRN PRN As Directed Oxytocin/Sodium Chloride 30 unit in 500 mls @ 2 mls/hr 05/09/21 09:30 Pitocin/Normal Saline IV [facility] Protocol 2 MILLIUNITS/MIN Ringer's Solution 1,000 mls @ 125 mls/hr 05/09/21 09:30 IV [facility] IV Miscellaneous Supplies 1 each 05/09/21 09:30 Iv Access IV [facility] Sodium Chloride 0 ml 05/09/21 09:28 Normal Saline Flush 10 Ml Syr IVP PRN PRN PFSH Active Problems Active Problems: Problem Status Onset Code Transverse lie of fetus O32.2XX0 Diabetes mellitus affecting O24.919 Pre-eclampsia affecting , antepartum O14.90 Proteinuria affecting O12.10 Gestational diabetes O24.419 Low-lying placenta in second trimester O44.42 Hx of macrosomia, infant of prior , currently O09.299 Prior shoulder dystocia at delivery, antepartum O09.299 History of hemorrhage, currently O09.299 Advanced maternal age (AMA) in History of gestational diabetes mellitus (GDM) Z86.32 History of gestational hypertension Z87.59 Rh negative state in antepartum period O26.899, Z67.91 BMI 36.0-36.9,adult Z68.36 12 weeks gestation of Z3A.12 Z34.90 ASCUS with positive high risk HPV Family history of ovarian cancer Z80.41 Calculus of kidney 07/19/15 N20.0 Surveillance of previously prescribed contraceptive pill 04/20/15 Z30.41 Ulcerative colitis 07/16/14 K51.90 BMI 32.0-32.9,adult 10/05/17 Z68.32 Medical History Medical History 2 weeks follow-up ASCUS with positive high risk HPV BMI 36.0-36.9,adult Family history of ovarian cancer History of gestational diabetes mellitus (GDM) History of gestational hypertension affected by growth restriction Ulcerative colitis Surgical History Surgical History Dilation and curettage (05/09/17) D&C for missed AB @ 7w6d. aoc Tobacco Smoking/Tobacco Use Status: Never Second hand exposure: No Alcohol Alcohol Intake: never Substance Use Substance use: Never Substance use type: does not use Prental History History 6 Para 4 Hx # Term Pregnancies 4 Multiple births 0 Hx # Pregnancies 0 Ectopic pregnancies 0 AB induced 0 Hx Number of Living Children 4 AB spontaneous 1 Past Pregnancies Del. Date GA/Weeks # Outcome Route Wgt Sex Labor Lgth Anesthes ia Location [facility] 12/31/04 36 No Successful vaginal 3543.69 g Female 9 hrs [place], n[facility]h dr[facility] mason hemorrhage 11/13/06 39 No Successful vaginal 4450.875 g Female 5hrs [facility] [employer] shoulder dystocia 04/26/18 39 No Successful vaginal 3912.234 g Female 8 hr [facility] [employer] 12/11/19 38 No Successful vaginal 4252.428 g Male 12 hours [facility] Delivery Date: 12/31/04 transfused x 2 units w/o reaction. probable chorio as per placental cx. pt delivered at [place] after being shipped from [facility] to [facility]. Elma Mora Delivery Date: 11/13/06 w/ s/d maneuvers delivery occurred. obtain delivery record of delivery. Elma Mora Delivery Date: 04/26/18 iol for gdm and lga. w/o delivery complications [facility] Delivery Date: 12/11/19 IOL,nuchal cord, miso and pitocin, epidural Meena Ashby Vital Signs and Lab Results Vital Signs Most Recent Vital Signs in EMR: Most Recent Vital Signs Temp Pulse Resp BP 36.8 C 102 H 16 141/98 H 05/09/21 09:28 05/09/21 09:28 05/09/21 09:28 05/09/21 09:28 Lab Results Result Diagrams: 05/09/21 10:05/09/21 10:17 Blood Type / Crossmatch: Patient ABO/Rh A Negative 05/09/21 10:17 05/09/21 Antibody Screen POSITIVE 05/09/21 10:17 05/09/21 Crossmatch See Detail 05/09/21 10:17 05/09/21 Complete Blood Count: 2 White Blood Count 9.08 10^3/uL (4.4-10.8) 05/09/21 10:17 05/09/21 Red Blood Count 4.03 10^6/uL (3.93-5.22) 05/09/21 10:17 05/09/21 Hemoglobin 9.7 g/dL (11.2-15.7) L 05/09/21 10:17 05/09/21 Hematocrit 31.4 % (36.0-46.0) L 05/09/21 10:17 05/09/21 Platelet Count 315 10^3/uL (130-400) 05/09/21 10:05/09/21 Complete Metabolic Panel: Sodium Level 136 mmol/L (136-145) 05/09/21 10:17 05/09/21 Potassium Level 4.3 mmol/L (3.5-5.1) 05/09/21 10:05/09/21 Chloride Level 105 mmol/L (98-107) 05/09/21 10:05/09/21 Carbon Dioxide Level 20.8 mmol/L (21.0-32.0) L 05/09/21 10:05/09/21 Blood Urea Nitrogen 12 mg/dL (7-18) 05/09/21 10:05/09/21 Creatinine 0.9 mg/dL (0.55-1.02) 05/09/21 10:17 05/09/21 Estimated GFR/1.73 m2 >= 60.00 (mL/min/1.73m2) 05/09/21 10:17 05/09/21 Calcium Level 9.2 mg/dL (8.5-10.1) 05/09/21 10:17 05/09/21 Albumin 2.3 g/dL (3.4-5.0) L 05/09/21 10:17 05/09/21 Glucose Level 116 mg/dL (74-106) H 05/09/21 10:17 05/09/21 Liver Function Panel: Alanine Aminotransferase (ALT/SGPT) 12 U/L (14-59) L 05/09/21 10:17 05/09/21 Aspartate Amino Transf (AST/SGOT) 13 U/L (15-37) L 05/09/21 10:17 05/09/21 Coagulation Panel: No Data to Display Cardiac Panel: No Data to Display Arterial Blood Gas: No Data to Display Venous Blood Gas: No Data to Display Pancreas Panel: No Data to Display Thyroid Panel: No Data to Display Infectious Disease: Coronavirus (COVID-19)(PCR) Negative (Negative) 05/09/21 09:40 05/09/21 Coronavirus 2019 Source Nasal/Nares 05/09/21 09:40 05/09/21 Blood Cultures: No Data to Display Toxicology Panel: Urine Amphetamines Screen Negative (Negative) 04/26/21 09:40 04/26/21 Urine Benzodiazepines Screen Negative (Negative) 04/26/21 09:40 04/26/21 Urine Barbiturates Screen Negative (Negative) 04/26/21 09:40 04/26/21 Urine Cocaine Screen Negative (Negative) 04/26/21 09:40 04/26/21 Urine Methadone Screen Negative (Negative) 04/26/21 09:40 04/26/21 Urine Opiates Screen Negative (Negative) 04/26/21 09:40 04/26/21 Ur Tricyclic Antidepressants Screen Negative (Negative) 04/26/21 09:40 04/26/21 Ur Tetrahydrocannabinol (THC) Scrn Negative (Negative) 04/26/21 09:40 04/26/21 Panel: No Data to Display Anesthesia Assessment and Plan Anesthesia History Personal History: No History of Anesthesia Complications Family History: No Family History of Anesthesia Complications Exercise Tolerance Exercise Tolerance: Metabolic Equivalents>4 Cardiac & Pulmonary Exam Cardiac Exam: Normal S1/S2 Heart Sounds Pulmonary Exam: Clear Bilateral Breath Sounds Airway Exam Known Difficult Airway: No Mallampati Class: 3 Mouth Opening: Normal (> 3cm) Thyromental Distance: Greater than 3 cm Neck Range of Motion: Full ROM Neck Circumference: Normal Teeth Condition: Normal Dentition ASA Classification ASA Score: ASA 2 Emergency Case?: No NPO Status NPO Status: Full Stomach Status Status: Other (Preg) Anesthesia Plan Resuscitation Status: Full Code Anesthesia Technique: Epidural Anesthesia Airway Planned: Natural Airway Monitors Used: Standard Monitors Preoperative Comments:: 41 yo for induction of labor/version or section. Currently with pre-eclampsia, GD, AMA, preg related GERD, and transverse position. Denies any major pmhx. baby 1 she did have a PPH for which she had 2 units of PRBCs. Has had and epidural in past with MAXIMO noted at 8 cm, she stated that it worked very well. Risks, benefits, and alternatives discussed in regards to epidural analgesia, spinal vs general for c section. Plan per Tomás is to check baby, reposition if needed, and start pitocin. if baby doesn't reposition we will head to OR for section. Also is risk for PPH so 2nd IV to be placed.
[2021-05-09 12:18] LABS: COVID-19 PCR Negative (Negative)
--- NOTE | 2021-05-09 12:20 | W.PM.OBNL1 ---
Date of service: 05/09/21 Time of Service: 12:20 Informed Consent Informed Consent: Section Delivery, Induction of Labor and Other (ECV ) Pelvic Exam Dilation: 2 Effacement (%): 50 Position: Other (out of the pelvis, US shows baby's head is down but to maternal left, MD aware) Cervix Position: mid Consistency: soft BISHOPS Score(Cervical Ripeness Score): 4 Contractions Monitor Mode: None Fetus A Assessment Note: currently off monitor after voiding, is being placed back on monitor for ambulation and initiation of pitocin at 2 mu and increase by 2 my every 30 minutes. MIGUELINA Assessment and Plan Assessment and plan (1) Encounter for induction of labor: Status: Acute Assessment and plan: Will have patient remain in bed per MD until having regular contractions then may be out of bed ambulating if VS stable. Patient is aware that we will need to check frequently to verify that baby is remaining head down. MIGUELINA Objective Abnormal lab results 05/09/21 05/09/21 05/09/21 Range/Units 10:17 10:17 10:17 Hgb 9.7 L (11.2-15.7) g/dL Hct 31.4 L (36.0-46.0) % MCV 77.9 L (80-95) fL MCH 24.1 L (27.0-33.0) pg MCHC 30.9 L (32.0-36.0) % RDW 15.4 H (11.7-14.6) % Carbon Dioxide 20.8 L (21.0-32.0) mmol/L Glucose 116 H (74-106) mg/dL AST 13 L (15-37) U/L ALT 12 L (14-59) U/L Albumin 2.3 L (3.4-5.0) g/dL Crossmatch See Detail Temp Pulse Resp BP 98.2 F 102 H 16 141/98 H 05/09/21 09:28 05/09/21 09:28 05/09/21 09:28 05/09/21 09:28 Laboratory Results WBC 9.08 10^3/uL (4.4-10.8) 05/09/21 10:17 RBC 4.03 10^6/uL (3.93-5.22) 05/09/21 10:17 Hgb 9.7 g/dL (11.2-15.7) L 05/09/21 10:17 Hct 31.4 % (36.0-46.0) L 05/09/21 10:17 MCV 77.9 fL (80-95) L 05/09/21 10:17 MCH 24.1 pg (27.0-33.0) L 05/09/21 10:17 MCHC 30.9 % (32.0-36.0) L 05/09/21 10:17 RDW 15.4 % (11.7-14.6) H 05/09/21 10:17 Plt Count 315 10^3/uL (130-400) 05/09/21 10:17 MPV 10.5 fL (8.0-11.0) 05/09/21 10:17 Sodium 136 mmol/L (136-145) 05/09/21 10:17 Potassium 4.3 mmol/L (3.5-5.1) 05/09/21 10:17 Chloride 105 mmol/L (98-107) 05/09/21 10:17 Carbon Dioxide 20.8 mmol/L (21.0-32.0) L 05/09/21 10:17 Anion Gap 10.2 mmol/L (3-11) 05/09/21 10:17 BUN 12 mg/dL (7-18) 05/09/21 10:17 Creatinine 0.9 mg/dL (0.55-1.02) 05/09/21 10:17 Estimated GFR/1.73 m2 >= 60.00 (mL/min/1.73m2) 05/09/21 10:17 Glucose 116 mg/dL (74-106) H 05/09/21 10:17 Calcium 9.2 mg/dL (8.5-10.1) 05/09/21 10:17 Total Bilirubin 0.3 mg/dL (0.2-1.0) 05/09/21 10:17 AST 13 U/L (15-37) L 05/09/21 10:17 ALT 12 U/L (14-59) L 05/09/21 10:17 Alkaline Phosphatase 84 U/L (46-116) 05/09/21 10:17 Total Protein 7.0 g/dL (6.4-8.2) 05/09/21 10:17 Albumin 2.3 g/dL (3.4-5.0) L 05/09/21 10:17 COVID-19 Source Nasal/Nares 05/09/21 09:40 SARS-CoV-2 (PCR) Negative (Negative) 05/09/21 09:40 Patient ABO/Rh A Negative 05/09/21 10:17 Antibody Screen POSITIVE 05/09/21 10:17 Antibody Identification Anti-D 05/09/21 10:17 Crossmatch See Detail 05/09/21 10:17 Vital Signs Reviewed: Yes Subjective Patient Reports: No new Complaints Interval history since last seen: wants to try walking with Pitocin. No severe features of pre-eclampsia, BP 140's/90's. MD is Ok with patient ambulating as long as we can monitor baby well. [facility] Interventions Induction Indication: Chronic Maternal Diabetes and PreEclampsia , Type of Induction: Pitocin , Results Hemoglobin/Hematocrit: Hgb 9.7 g/dL (11.2-15.7) L 05/09/21 10:17 Hct 31.4 % (36.0-46.0) L 05/09/21 10:17 Abnormal Lab Findings: Abnormal Labs 05/09/21 05/09/21 05/09/21 10:17 10:17 10:17 Hgb 9.7 L Hct 31.4 L MCV 77.9 L MCH 24.1 L MCHC 30.9 L RDW 15.4 H Carbon Dioxide 20.8 L Glucose 116 H AST 13 L ALT 12 L Albumin 2.3 L Crossmatch See Detail
[2021-05-09] MEDS: Oxytocin/Normal Saline 30 UNIT/500 ML BAG 2 UNITS IV (12:23)
[2021-05-09] MEDS: Lactated Ringers 1,000 ML 125 ML IV ×2 (12:24→20:23)
--- NOTE | 2021-05-09 17:09 | W.PM.OBNL1 ---
Date of service: 05/09/21 Time of Service: 17:09 Informed Consent Informed Consent: Section Delivery, Induction of Labor and Other (ECV ) Pelvic Exam Vaginal Exam Presentation: Cephalic Contractions Monitor Mode: External Contraction Frequency(min): 2-3 Contraction Duration(sec): 40-60 Intensity: Moderate Fetus A Monitor: External (US) Heart Rate Baseline: 132 Presentation: Cephalic Variability: Moderate (6-25 BPM) Categories: Category I Accelerations: 15 X 15 Decelerations: None Assessment and Plan Assessment and plan (1) Successful external cephalic version: Status: Acute Assessment and plan: pitocin induction. Kh (2) Encounter for induction of labor: Status: Acute Assessment and plan: pitocin at 14 mu, will plan VE in next 2 hours or prn.KH (3) Diabetes mellitus affecting : Status: Acute Assessment and plan: checking finger stick BG every 4 hours per recommendation of MD last BG 80 (4) Pre-eclampsia affecting , antepartum: Status: Acute Assessment and plan: denies signs of pre-eclampsia BP stable, no severe range BP's initial CMP WNL (5) History of hemorrhage, currently : Status: Acute Assessment and plan: will be prepared to place cytotec 800 mcg rectally, pitocin IV and IM and MD will be in hospital for delivery. Second IV line has been placed by anesthesia due to patient's prior need for blood transfusion. KH (6) Anemia: Status: Chronic Assessment and plan: will be using active management of third stage, will monitor CBC PP Kh Objective Abnormal lab results 05/09/21 05/09/21 05/09/21 Range/Units 10:17 10:17 10:17 Hgb 9.7 L (11.2-15.7) g/dL Hct 31.4 L (36.0-46.0) % MCV 77.9 L (80-95) fL MCH 24.1 L (27.0-33.0) pg MCHC 30.9 L (32.0-36.0) % RDW 15.4 H (11.7-14.6) % Carbon Dioxide 20.8 L (21.0-32.0) mmol/L Glucose 116 H (74-106) mg/dL AST 13 L (15-37) U/L ALT 12 L (14-59) U/L Albumin 2.3 L (3.4-5.0) g/dL Crossmatch See Detail Temp Pulse Resp BP 97.7 F 103 H 16 135/84 05/09/21 12:54 05/09/21 16:10 05/09/21 09:28 05/09/21 16:10 Laboratory Results WBC 9.08 10^3/uL (4.4-10.8) 05/09/21 10:17 RBC 4.03 10^6/uL (3.93-5.22) 05/09/21 10:17 Hgb 9.7 g/dL (11.2-15.7) L 05/09/21 10:17 Hct 31.4 % (36.0-46.0) L 05/09/21 10:17 MCV 77.9 fL (80-95) L 05/09/21 10:17 MCH 24.1 pg (27.0-33.0) L 05/09/21 10:17 MCHC 30.9 % (32.0-36.0) L 05/09/21 10:17 RDW 15.4 % (11.7-14.6) H 05/09/21 10:17 Plt Count 315 10^3/uL (130-400) 05/09/21 10:17 MPV 10.5 fL (8.0-11.0) 05/09/21 10:17 Sodium 136 mmol/L (136-145) 05/09/21 10:17 Potassium 4.3 mmol/L (3.5-5.1) 05/09/21 10:17 Chloride 105 mmol/L (98-107) 05/09/21 10:17 Carbon Dioxide 20.8 mmol/L (21.0-32.0) L 05/09/21 10:17 Anion Gap 10.2 mmol/L (3-11) 05/09/21 10:17 BUN 12 mg/dL (7-18) 05/09/21 10:17 Creatinine 0.9 mg/dL (0.55-1.02) 05/09/21 10:17 Estimated GFR/1.73 m2 >= 60.00 (mL/min/1.73m2) 05/09/21 10:17 Glucose 116 mg/dL (74-106) H 05/09/21 10:17 Calcium 9.2 mg/dL (8.5-10.1) 05/09/21 10:17 Total Bilirubin 0.3 mg/dL (0.2-1.0) 05/09/21 10:17 AST 13 U/L (15-37) L 05/09/21 10:17 ALT 12 U/L (14-59) L 05/09/21 10:17 Alkaline Phosphatase 84 U/L (46-116) 05/09/21 10:17 Total Protein 7.0 g/dL (6.4-8.2) 05/09/21 10:17 Albumin 2.3 g/dL (3.4-5.0) L 05/09/21 10:17 COVID-19 Source Nasal/Nares 05/09/21 09:40 SARS-CoV-2 (PCR) Negative (Negative) 05/09/21 09:40 Patient ABO/Rh A Negative 05/09/21 10:17 Antibody Screen POSITIVE 05/09/21 10:17 Antibody Identification Anti-D 05/09/21 10:17 Crossmatch See Detail 05/09/21 10:17 Vital Signs Reviewed: Yes Subjective Interval history since last seen: patient is aware of contractions but is not uncomfortable. Happy that baby has remained head down. KH Results Hemoglobin/Hematocrit: Hgb 9.7 g/dL (11.2-15.7) L 05/09/21 10:17 Hct 31.4 % (36.0-46.0) L 05/09/21 10:17 Abnormal Lab Findings: Abnormal Labs 05/09/21 05/09/21 05/09/21 10:17 10:17 10:17 Hgb 9.7 L Hct 31.4 L MCV 77.9 L MCH 24.1 L MCHC 30.9 L RDW 15.4 H Carbon Dioxide 20.8 L Glucose 116 H AST 13 L ALT 12 L Albumin 2.3 L Crossmatch See Detail
--- NOTE | 2021-05-09 20:33 | W.PM.OBNL1 ---
Date of service: 05/09/21 Time of Service: 20:33 Informed Consent Informed Consent: Section Delivery, Induction of Labor and Other (ECV ) Assessment and Plan Assessment and plan (1) Successful external cephalic version: Status: Acute Assessment and plan: Now with labor induction. Pitocin @ 20. Contractions more strong and regular. Will SROM when vertex is not ballotable. Discussed all options and risks again with patient. High alert for abnormal presentation on ROM, high alert for potential post hemorrhage. No change in current labor management. Patient would like pain control potentially with Nitrous Oxide, +/- epidural as needed. (2) Encounter for induction of labor: Status: Acute Assessment and plan: Continue pitocin (3) Diabetes mellitus affecting : Status: Acute Assessment and plan: Random blood glucose stable (4) Pre-eclampsia affecting , antepartum: Status: Acute Assessment and plan: Blood pressures are stable currently with normal laboratory studies (5) Anemia: Status: Chronic (6) History of hemorrhage, currently : Status: Acute (7) Advanced maternal age (AMA) in : Status: Acute Objective Abnormal lab results 05/09/21 05/09/21 05/09/21 Range/Units 10:17 10:17 10:17 Hgb 9.7 L (11.2-15.7) g/dL Hct 31.4 L (36.0-46.0) % MCV 77.9 L (80-95) fL MCH 24.1 L (27.0-33.0) pg MCHC 30.9 L (32.0-36.0) % RDW 15.4 H (11.7-14.6) % Carbon Dioxide 20.8 L (21.0-32.0) mmol/L Glucose 116 H (74-106) mg/dL AST 13 L (15-37) U/L ALT 12 L (14-59) U/L Albumin 2.3 L (3.4-5.0) g/dL Crossmatch See Detail Temp Pulse Resp BP 98.6 F 100 H 16 144/88 H 05/09/21 18:35 05/09/21 18:35 05/09/21 18:35 05/09/21 18:35 Laboratory Results WBC 9.08 10^3/uL (4.4-10.8) 05/09/21 10:17 RBC 4.03 10^6/uL (3.93-5.22) 05/09/21 10:17 Hgb 9.7 g/dL (11.2-15.7) L 05/09/21 10:17 Hct 31.4 % (36.0-46.0) L 05/09/21 10:17 MCV 77.9 fL (80-95) L 05/09/21 10:17 MCH 24.1 pg (27.0-33.0) L 05/09/21 10:17 MCHC 30.9 % (32.0-36.0) L 05/09/21 10:17 RDW 15.4 % (11.7-14.6) H 05/09/21 10:17 Plt Count 315 10^3/uL (130-400) 05/09/21 10:17 MPV 10.5 fL (8.0-11.0) 05/09/21 10:17 Sodium 136 mmol/L (136-145) 05/09/21 10:17 Potassium 4.3 mmol/L (3.5-5.1) 05/09/21 10:17 Chloride 105 mmol/L (98-107) 05/09/21 10:17 Carbon Dioxide 20.8 mmol/L (21.0-32.0) L 05/09/21 10:17 Anion Gap 10.2 mmol/L (3-11) 05/09/21 10:17 BUN 12 mg/dL (7-18) 05/09/21 10:17 Creatinine 0.9 mg/dL (0.55-1.02) 05/09/21 10:17 Estimated GFR/1.73 m2 >= 60.00 (mL/min/1.73m2) 05/09/21 10:17 Glucose 116 mg/dL (74-106) H 05/09/21 10:17 Calcium 9.2 mg/dL (8.5-10.1) 05/09/21 10:17 Total Bilirubin 0.3 mg/dL (0.2-1.0) 05/09/21 10:17 AST 13 U/L (15-37) L 05/09/21 10:17 ALT 12 U/L (14-59) L 09/06/21 10:17 Alkaline Phosphatase 84 U/L (46-116) 05/09/21 10:17 Total Protein 7.0 g/dL (6.4-8.2) 05/09/21 10:17 Albumin 2.3 g/dL (3.4-5.0) L 05/09/21 10:17 COVID-19 Source Nasal/Nares 05/09/21 09:40 SARS-CoV-2 (PCR) Negative (Negative) 05/09/21 09:40 Patient ABO/Rh A Negative 05/09/21 10:17 Antibody Screen POSITIVE 05/09/21 10:17 Antibody Identification Anti-D 05/09/21 10:17 Crossmatch See Detail 05/09/21 10:17 Subjective Interval history since last seen: Patient seen and examined. Feeling more uncomfortable with contractions every 2 minutes. Pitocin @ 20. U/S with fetus vertex. SVE 2 cm, ballotable, 50%, soft, very anterior. Not able to safely SROM Results Hemoglobin/Hematocrit: Hgb 9.7 g/dL (11.2-15.7) L 05/09/21 10:17 Hct 31.4 % (36.0-46.0) L 05/09/21 10:17 Abnormal Lab Findings: Abnormal Labs 05/09/21 05/09/21 05/09/21 10:17 10:17 10:17 Hgb 9.7 L Hct 31.4 L MCV 77.9 L MCH 24.1 L MCHC 30.9 L RDW 15.4 H Carbon Dioxide 20.8 L Glucose 116 H AST 13 L ALT 12 L Albumin 2.3 L Crossmatch See Detail
--- NOTE | 2021-05-09 22:21 | NUR.NOTE ---
Pt is afraid to move around during induction/labor. Baby was breech with a successful version on 05/05/21. Pt only feels comfortable lying in semi-fowlers with a slight tilt or high fowlers. Providers informed RN to let pt be in bed where she is comfortable and not continue to encourage her to move around. RN will follow verbal orders and pass along to incoming shift. Nursing Note:
[2021-05-10] VITALS (42 sets, daily range): BP systolic 126–186; BP diastolic 74–93; PULSE 75–116; RESP 18–20; TEMP 36.6–36.8; O2SAT 99–100
--- NOTE | 2021-05-10 00:18 | W.PM.OBNL1 ---
Date of service: 05/10/21 Time of Service: 00:19 Informed Consent Informed Consent: Section Delivery, Induction of Labor and Other (ECV ) Pelvic Exam Comments: VE deferred as patient is not feeling contractions and per consult with Dr. England, we will allow for sleep and light breakfast and then reassess in am as pitocin has been infusing for 12 hours without changes. KH Contractions Monitor Mode: Palpation Contraction Frequency(min): 3-5 Contraction Duration(sec): 50-60 Intensity: Mild Fetus A Monitor: External (US) Heart Rate Baseline: 120 Variability: Moderate (6-25 BPM) Categories: Category I Accelerations: 15 X 15 Decelerations: None Amniotic Membrane Status: Intact Assessment and Plan Assessment and plan (1) Encounter for induction of labor: Status: Acute Assessment and plan: per consult with Dr. England, we will discontinue pitocin, allow patient to sleep and have early breakfast with plan to reassess and start pitocin again at 0700. Will hold BP's and BG's overnight as well. Will get fasting BG prior to breakfast in am and 1 hour after. KH Objective Abnormal lab results 05/09/21 05/09/21 05/09/21 Range/Units 10:17 10:17 10:17 Hgb 9.7 L (11.2-15.7) g/dL Hct 31.4 L (36.0-46.0) % MCV 77.9 L (80-95) fL MCH 24.1 L (27.0-33.0) pg MCHC 30.9 L (32.0-36.0) % RDW 15.4 H (11.7-14.6) % Carbon Dioxide 20.8 L (21.0-32.0) mmol/L Glucose 116 H (74-106) mg/dL AST 13 L (15-37) U/L ALT 12 L (14-59) U/L Albumin 2.3 L (3.4-5.0) g/dL Crossmatch See Detail Temp Pulse Resp BP 98.2 F 95 H 16 136/92 H 05/09/21 23:31 05/09/21 23:31 05/09/21 18:35 05/09/21 23:31 Laboratory Results WBC 9.08 10^3/uL (4.4-10.8) 05/09/21 10:17 RBC 4.03 10^6/uL (3.93-5.22) 05/09/21 10:17 Hgb 9.7 g/dL (11.2-15.7) L 05/09/21 10:17 Hct 31.4 % (36.0-46.0) L 05/09/21 10:17 MCV 77.9 fL (80-95) L 05/09/21 10:17 MCH 24.1 pg (27.0-33.0) L 05/09/21 10:17 MCHC 30.9 % (32.0-36.0) L 05/09/21 10:17 RDW 15.4 % (11.7-14.6) H 05/09/21 10:17 Plt Count 315 10^3/uL (130-400) 05/09/21 10:17 MPV 10.5 fL (8.0-11.0) 05/09/21 10:17 Sodium 136 mmol/L (136-145) 05/09/21 10:17 Potassium 4.3 mmol/L (3.5-5.1) 05/09/21 10:17 Chloride 105 mmol/L (98-107) 05/09/21 10:17 Carbon Dioxide 20.8 mmol/L (21.0-32.0) L 05/09/21 10:17 Anion Gap 10.2 mmol/L (3-11) 05/09/21 10:17 BUN 12 mg/dL (7-18) 05/09/21 10:17 Creatinine 0.9 mg/dL (0.55-1.02) 05/09/21 10:17 Estimated GFR/1.73 m2 >= 60.00 (mL/min/1.73m2) 05/09/21 10:17 Glucose 116 mg/dL (74-106) H 05/09/21 10:17 Calcium 9.2 mg/dL (8.5-10.1) 05/09/21 10:17 Total Bilirubin 0.3 mg/dL (0.2-1.0) 05/09/21 10:17 AST 13 U/L (15-37) L 05/09/21 10:17 ALT 12 U/L (14-59) L 05/09/21 10:17 Alkaline Phosphatase 84 U/L (46-116) 05/09/21 10:17 Total Protein 7.0 g/dL (6.4-8.2) 05/09/21 10:17 Albumin 2.3 g/dL (3.4-5.0) L 05/09/21 10:17 COVID-19 Source Nasal/Nares 05/09/21 09:40 SARS-CoV-2 (PCR) Negative (Negative) 05/09/21 09:40 Patient ABO/Rh A Negative 05/09/21 10:17 Antibody Screen POSITIVE 05/09/21 10:17 Antibody Identification Anti-D 05/09/21 10:17 Crossmatch See Detail 05/09/21 10:17 Vital Signs Reviewed: Yes Notable Details: reflexes have remained normal, no edema Subjective Interval history since last seen: delvin states she is hardly aware of contractions any longer and that baby is not feeling as low as he did earlier. she is interested in a period of rest and restart of induction in the morning after breakfast. denies TORRES, visual disturbance or epigastric pain. BP's are stable and BG's have been within normal limits. KH Results Hemoglobin/Hematocrit: Hgb 9.7 g/dL (11.2-15.7) L 05/09/21 10:17 Hct 31.4 % (36.0-46.0) L 05/09/21 10:17 Abnormal Lab Findings: Abnormal Labs 05/09/21 05/09/21 05/09/21 10:17 10:17 10:17 Hgb 9.7 L Hct 31.4 L MCV 77.9 L MCH 24.1 L MCHC 30.9 L RDW 15.4 H Carbon Dioxide 20.8 L Glucose 116 H AST 13 L ALT 12 L Albumin 2.3 L Crossmatch See Detail
--- NOTE | 2021-05-10 06:50 | PGE_ITS ---
Date of service: 05/10/21 Time of Service: 06:50 Informed Consent Informed Consent: Section Delivery, Induction of Labor and Other (ECV ) Pelvic Exam Comments: VE deferred, will wait until patient is actively aleksandar to preven t head from moving out of pelvis. Contractions Monitor Mode: External Contraction Frequency(min): 0 Fetus A Monitor: External (US) Heart Rate Baseline: 120 Presentation: Cephalic Variability: Moderate (6-25 BPM) Categories: Category I Accelerations: 15 X 15 Decelerations: None Assessment and Plan Assessment and plan (1) Encounter for induction of labor: Status: Acute Assessment and plan: will restart pitocin per previous plan with Dr. England. will share decision making with MD and patient as we move forward. KH (2) Diabetes mellitus affecting : Status: Acute Assessment and plan: will resume every 4 hour BG monitoring KH (3) Pre-eclampsia affecting , antepartum: Status: Acute Assessment and plan: No severe range BP's no signs of pre-eclampsia outside of lab data. Objective Abnormal lab results 05/09/21 05/09/21 05/09/21 Range/Units 10:17 10:17 10:17 Hgb 9.7 L (11.2-15.7) g/dL Hct 31.4 L (36.0-46.0) % MCV 77.9 L (80-95) fL MCH 24.1 L (27.0-33.0) pg MCHC 30.9 L (32.0-36.0) % RDW 15.4 H (11.7-14.6) % Carbon Dioxide 20.8 L (21.0-32.0) mmol/L Glucose 116 H (74-106) mg/dL AST 13 L (15-37) U/L ALT 12 L (14-59) U/L Albumin 2.3 L (3.4-5.0) g/dL Crossmatch See Detail Temp Pulse Resp BP 97.9 F 93 H 16 138/82 05/10/21 05:57 05/10/21 05:57 05/09/21 18:35 05/10/21 05:57 Laboratory Results WBC 9.08 10^3/uL (4.4-10.8) 05/09/21 10:17 RBC 4.03 10^6/uL (3.93-5.22) 05/09/21 10:17 Hgb 9.7 g/dL (11.2-15.7) L 05/09/21 10:17 Hct 31.4 % (36.0-46.0) L 05/09/21 10:17 MCV 77.9 fL (80-95) L 05/09/21 10:17 MCH 24.1 pg (27.0-33.0) L 05/09/21 10:17 MCHC 30.9 % (32.0-36.0) L 05/09/21 10:17 RDW 15.4 % (11.7-14.6) H 05/09/21 10:17 Plt Count 315 10^3/uL (130-400) 05/09/21 10:17 MPV 10.5 fL (8.0-11.0) 05/09/21 10:17 Sodium 136 mmol/L (136-145) 05/09/21 10:17 Potassium 4.3 mmol/L (3.5-5.1) 05/09/21 10:17 Chloride 105 mmol/L (98-107) 05/09/21 10:17 Carbon Dioxide 20.8 mmol/L (21.0-32.0) L 05/09/21 10:17 Anion Gap 10.2 mmol/L (3-11) 05/09/21 10:17 BUN 12 mg/dL (7-18) 05/09/21 10:17 Creatinine 0.9 mg/dL (0.55-1.02) 05/09/21 10:17 Estimated GFR/1.73 m2 >= 60.00 (mL/min/1.73m2) 05/09/21 10:17 Glucose 116 mg/dL (74-106) H 05/09/21 10:17 Calcium 9.2 mg/dL (8.5-10.1) 05/09/21 10:17 Total Bilirubin 0.3 mg/dL (0.2-1.0) 05/09/21 10:17 AST 13 U/L (15-37) L 05/09/21 10:17 ALT 12 U/L (14-59) L 05/09/21 10:17 Alkaline Phosphatase 84 U/L (46-116) 05/09/21 10:17 Total Protein 7.0 g/dL (6.4-8.2) 05/09/21 10:17 Albumin 2.3 g/dL (3.4-5.0) L 05/09/21 10:17 COVID-19 Source Nasal/Nares 05/09/21 09:40 SARS-CoV-2 (PCR) Negative (Negative) 05/09/21 09:40 Patient ABO/Rh A Negative 05/09/21 10:17 Antibody Screen POSITIVE 05/09/21 10:17 Antibody Identification Anti-D 05/09/21 10:17 Crossmatch See Detail 05/09/21 10:17 Vital Signs Reviewed: Yes Subjective Patient Reports: No new Complaints Interval history since last seen: was able to sleep for a few hours. Is not aware of contractions at all at this time. Denies LOF or vaginal bleeding. Reports baby has been active but that she believes the head is still down. Denies TORRES, visual disturbance or epigastric pain. tolerated regular diet this morning of eggs, neely and toast. Fasting BG in the 80's. KH Results Hemoglobin/Hematocrit: Hgb 9.7 g/dL (11.2-15.7) L 05/09/21 10:17 Hct 31.4 % (36.0-46.0) L 05/09/21 10:17 Abnormal Lab Findings: Abnormal Labs 05/09/21 05/09/21 05/09/21 10:17 10:17 10:17 Hgb 9.7 L Hct 31.4 L MCV 77.9 L MCH 24.1 L MCHC 30.9 L RDW 15.4 H Carbon Dioxide 20.8 L Glucose 116 H AST 13 L ALT 12 L Albumin 2.3 L Crossmatch See Detail
[2021-05-10] MEDS: Oxytocin/Normal Saline 30 UNIT/500 ML BAG 2 UNITS IV (07:15)
[2021-05-10] MEDS: Normal Saline Flush 10 ML SYR IVP ×2 (07:17→07:30)
--- NOTE | 2021-05-10 10:03 | PGE_ITS ---
Date of service: 05/10/21 Time of Service: 10:03 Informed Consent Informed Consent: Section Delivery, Induction of Labor and Other (ECV ) Pelvic Exam Comments: Dr. Mora did vaginal examination, unable to identify cervical dila tion and although baby's head is in lower abdomen, not palpable with VE. MD identified that rectum is full and that patient may benefit from enema this morning and patient agrees. Contractions Monitor Mode: External Contraction Frequency(min): irregular Intensity: Mild Fetus A Monitor: External (US) Heart Rate Baseline: 120 Assessment Note: tracing has been consistently CAT I, currently working to reapply monitor as after VE we placed IV bags on maternal abdomen on either long side of baby and then wrapped with abdominal binder to hold baby in place. Assessment and Plan Assessment and plan (1) Encounter for induction of labor: Status: Acute Assessment and plan: Dr. Mora has assessed patient by US, confirmed that head is still down Abdominal binder placed with IV bag lying vertically next to baby to help hold in position Pitocin infusing will give enema to help patient empty rectum Will reassess as indicated by maternal condition. Objective Abnormal lab results 05/09/21 05/09/21 05/09/21 Range/Units 10:17 10:17 10:17 Hgb 9.7 L (11.2-15.7) g/dL Hct 31.4 L (36.0-46.0) % MCV 77.9 L (80-95) fL MCH 24.1 L (27.0-33.0) pg MCHC 30.9 L (32.0-36.0) % RDW 15.4 H (11.7-14.6) % Carbon Dioxide 20.8 L (21.0-32.0) mmol/L Glucose 116 H (74-106) mg/dL AST 13 L (15-37) U/L ALT 12 L (14-59) U/L Albumin 2.3 L (3.4-5.0) g/dL Crossmatch See Detail Temp Pulse Resp BP 98.1 F 96 H 16 139/89 05/10/21 08:58 05/10/21 08:16 05/09/21 18:35 05/10/21 08:16 Laboratory Results WBC 9.08 10^3/uL (4.4-10.8) 05/09/21 10:17 RBC 4.03 10^6/uL (3.93-5.22) 05/09/21 10:17 Hgb 9.7 g/dL (11.2-15.7) L 05/09/21 10:17 Hct 31.4 % (36.0-46.0) L 05/09/21 10:17 MCV 77.9 fL (80-95) L 05/09/21 10:17 MCH 24.1 pg (27.0-33.0) L 05/09/21 10:17 MCHC 30.9 % (32.0-36.0) L 05/09/21 10:17 RDW 15.4 % (11.7-14.6) H 05/09/21 10:17 Plt Count 315 10^3/uL (130-400) 05/09/21 10:17 MPV 10.5 fL (8.0-11.0) 05/09/21 10:17 Sodium 136 mmol/L (136-145) 05/09/21 10:17 Potassium 4.3 mmol/L (3.5-5.1) 05/09/21 10:17 Chloride 105 mmol/L (98-107) 05/09/21 10:17 Carbon Dioxide 20.8 mmol/L (21.0-32.0) L 05/09/21 10:17 Anion Gap 10.2 mmol/L (3-11) 05/09/21 10:17 BUN 12 mg/dL (7-18) 05/09/21 10:17 Creatinine 0.9 mg/dL (0.55-1.02) 05/09/21 10:17 Estimated GFR/1.73 m2 >= 60.00 (mL/min/1.73m2) 05/09/21 10:17 Glucose 116 mg/dL (74-106) H 05/09/21 10:17 Calcium 9.2 mg/dL (8.5-10.1) 05/09/21 10:17 Total Bilirubin 0.3 mg/dL (0.2-1.0) 05/09/21 10:17 AST 13 U/L (15-37) L 05/09/21 10:17 ALT 12 U/L (14-59) L 05/09/21 10:17 Alkaline Phosphatase 84 U/L (46-116) 05/09/21 10:17 Total Protein 7.0 g/dL (6.4-8.2) 05/09/21 10:17 Albumin 2.3 g/dL (3.4-5.0) L 05/09/21 10:17 COVID-19 Source Nasal/Nares 05/09/21 09:40 SARS-CoV-2 (PCR) Negative (Negative) 05/09/21 09:40 Patient ABO/Rh A Negative 05/09/21 10:17 Antibody Screen POSITIVE 05/09/21 10:17 Antibody Identification Anti-D 05/09/21 10:17 Crossmatch See Detail 05/09/21 10:17 Subjective Interval history since last seen: Nathalie is not feeling contractions consistently yet this morning. Is somewhat sad that there is increased risk for but reassured that we are remote from that possibility as we are still working to get her into labor and allow baby to drop into pelvis. Anesthesia has been in to consult with patient about labor epidural and to offer to discuss regional vs general anesthesia if emergent need is identified. she declines further education about that at this time. [facility] Results Hemoglobin/Hematocrit: Hgb 9.7 g/dL (11.2-15.7) L 05/09/21 10:17 Hct 31.4 % (36.0-46.0) L 05/09/21 10:17 Abnormal Lab Findings: Abnormal Labs 05/09/21 05/09/21 05/09/21 10:17 10:17 10:17 Hgb 9.7 L Hct 31.4 L MCV 77.9 L MCH 24.1 L MCHC 30.9 L RDW 15.4 H Carbon Dioxide 20.8 L Glucose 116 H AST 13 L ALT 12 L Albumin 2.3 L Crossmatch See Detail
--- NOTE | 2021-05-10 10:51 | OBCE_ITS ---
Date of service: 05/10/21 Time of Service: 10:51 Assessment and Plan Assessment and plan (1) Encounter for induction of labor: Status: Acute Assessment and plan: Hospital day 2 oxytocin currently 6 milliunits/min. Vital signs stable. Patient agreeable to the plan of care. (2) Unstable lie of fetus: Status: Acute Assessment and plan: Currently in vertex presentation with a high presenting part. No attempt was made to perform AROM. We braced her abdomen in order to encourage continued vertex presentation. We will proceed with oxytocin protocol. Qualifiers: Fetus number: single or unspecified fetus Qualified Code(s): O32.0XX0 - Maternal care for unstable lie, not applicable or unspecified History of Present Illness History of Present Illness Chief Complaint: IOL. 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 aoc Family History Mother Ovarian cancer 64 Diabetes borderline Father Essential hypertension Hyperlipidemia Sister No problems noted. Maternal Grandfather , in his 50s Colon cancer Paternal Grandfather , in his 70s Stroke Maternal Grandmother , age 75 Cancer female Paternal Grandmother , age 90 No problems noted. MATERNAL UNCLE/AUNT Diabetes Daughter No problems noted. Daughter No problems noted. Other Family history of diabetes mellitus Family history of ovarian cancer Social History Smoking/Tobacco Use Status: Never Second Hand Exposure: No Smoking risk assessment performed?: Yes Alcohol Intake: never Drug use: Never Substance use type: does not use Caregiver/Support person: No Household members: spouse and children Housing: house Pets and animals: Yes Pets and animals: cat(s) Sexually active: Yes Do you think of yourself as: straight/heterosexual Current gender identity: female What is your relationship status?: How often do you talk on the phone with friends or family?: three or more times per week How often do you get together with friends or relatives?: once per week How often do you attend bahai or presybeterian services?: 1-3 times per year Do you belong to any clubs or organized social groups?: no Panel score (0-1 are the most socially isolated patients): 2 What type of physical activity do you participate in: walking Duration: 15-30 minutes/day Frequency: 1-2 times per week Rita/Muslim: Pentecostal Special rita needs: No Seatbelt use: always Helmet use: Yes Helmet use: always Drive intox or ride w/intox driver education road instructor: No Working smoke detector in home: No Do you feel safe at home: Yes Do you feel safe in your relationship?: Yes Female Reproductive History Menstrual control method: none History History 6 Para 4 Hx # Term Pregnancies 4 Multiple births 0 Hx # Pregnancies 0 Ectopic pregnancies 0 AB induced 0 Hx Number of Living Children 4 AB spontaneous 1 Past Pregnancies Del. Date GA/Weeks # Outcome Route Wgt Sex Labor Lgth Anesthes ia Location Prov Complic 12/31/04 36 No Successful vaginal 7 lb 13 oz Female [address] hemorrhage 11/13/06 39 No Successful vaginal 9 lb 13 oz Female 5hrs [facility] shoulder dystocia 04/26/18 39 No Successful vaginal 8 lb 10 oz Female 8 hr [facility] 12/11/19 38 No Successful vaginal 9 lb 6 oz Male 12 hours [facility] Delivery Date: 12/31/04 transfused x 2 units w/o reaction. probable chorio as per placental cx. pt delivered at [place] after being shipped [address] [facility]. Elma Mora Delivery Date: 11/13/06 w/ s/d maneuvers delivery occurred. obtain delivery record of delivery. [place] Delivery Date: 04/26/18 iol for gdm and lga. w/o delivery complications [place],Anea Delivery Date: 12/11/19 IOL,nuchal cord, miso and pitocin, epidural Meena Ashby Exam Narrative Exam Narrative: Patient is a 41-year-old multiparous female admitted for induction of labor on . Her been complicated by mild preeclampsia and an unstable lie. She underwent an external cephalic version approximately week ago. The fetus has remained in a vertex presentation with a high presenting part. I discussed to evaluate the patient by VICKY Jaquez Other: Bedside ultrasound was used to confirm vertex with the presenting part high in the pelvis. On vaginal exam the cervix cervix was not dilated cervix but soft but the lower uterine segment was not well-developed. I was able to palpate the patient's fundus was reassured that the fetus was in a vertex presentation prior to application of a liter bag of IV fluid to her right and left sides held in place with abdominal binder. No attempted rupture membranes was performed. Results Last Vital Signs Temp 98.1 F 05/10/21 08:58 Pulse 93 H 05/10/21 10:16 Resp 16 05/09/21 18:35 BP 129/86 05/10/21 10:16 Labs Result diagrams: 05/09/21 10:17 05/09/21 10:17 Labs: Laboratory Results - last 24 hr 05/09/21 05/09/21 09:40 10:17 COVID-19 Source Nasal/Nares SARS-CoV-2 (PCR) Negative Patient ABO/Rh A Negative Antibody Screen POSITIVE Antibody Identification Anti-D Crossmatch See Detail
[2021-05-10] MEDS: Lactated Ringers 1,000 ML 125 ML IV ×2 (10:57→18:27)
--- NOTE | 2021-05-10 13:53 | W.PM.OBNL1 ---
Date of service: 05/10/21 Time of Service: 13:53 Informed Consent Informed Consent: Section Delivery, Induction of Labor and Other (ECV ) Pelvic Exam Comments: VE deferred. KH Contractions Monitor Mode: Palpation Contraction Frequency(min): 4-10 Contraction Duration(sec): 50-90 Intensity: Mild/Moderate Fetus A Monitor: External (US) Heart Rate Baseline: 120 Presentation: Cephalic Variability: Moderate (6-25 BPM) Categories: Category I Accelerations: 15 X 15 Decelerations: None Assessment and Plan Assessment and plan (1) Encounter for induction of labor: Status: Acute Assessment and plan: will continue present management. pitocin is at 18 mu, will consult with MD if need to go above 20 mu. KH Objective Temp Pulse Resp BP 98.1 F 91 H 20 135/80 05/10/21 11:57 05/10/21 11:54 05/10/21 11:57 05/10/21 11:54 Laboratory Results WBC 9.08 10^3/uL (4.4-10.8) 05/09/21 10:17 RBC 4.03 10^6/uL (3.93-5.22) 05/09/21 10:17 Hgb 9.7 g/dL (11.2-15.7) L 05/09/21 10:17 Hct 31.4 % (36.0-46.0) L 05/09/21 10:17 MCV 77.9 fL (80-95) L 05/09/21 10:17 MCH 24.1 pg (27.0-33.0) L 05/09/21 10:17 MCHC 30.9 % (32.0-36.0) L 05/09/21 10:17 RDW 15.4 % (11.7-14.6) H 05/09/21 10:17 Plt Count 315 10^3/uL (130-400) 05/09/21 10:17 MPV 10.5 fL (8.0-11.0) 05/09/21 10:17 Sodium 136 mmol/L (136-145) 05/09/21 10:17 Potassium 4.3 mmol/L (3.5-5.1) 05/09/21 10:17 Chloride 105 mmol/L (98-107) 05/09/21 10:17 Carbon Dioxide 20.8 mmol/L (21.0-32.0) L 05/09/21 10:17 Anion Gap 10.2 mmol/L (3-11) 05/09/21 10:17 BUN 12 mg/dL (7-18) 05/09/21 10:17 Creatinine 0.9 mg/dL (0.55-1.02) 05/09/21 10:17 Estimated GFR/1.73 m2 >= 60.00 (mL/min/1.73m2) 05/09/21 10:17 Glucose 116 mg/dL (74-106) H 05/09/21 10:17 Calcium 9.2 mg/dL (8.5-10.1) 05/09/21 10:17 Total Bilirubin 0.3 mg/dL (0.2-1.0) 05/09/21 10:17 AST 13 U/L (15-37) L 05/09/21 10:17 ALT 12 U/L (14-59) L 05/09/21 10:17 Alkaline Phosphatase 84 U/L (46-116) 05/09/21 10:17 Total Protein 7.0 g/dL (6.4-8.2) 05/09/21 10:17 Albumin 2.3 g/dL (3.4-5.0) L 05/09/21 10:17 COVID-19 Source Nasal/Nares 05/09/21 09:40 SARS-CoV-2 (PCR) Negative (Negative) 05/09/21 09:40 Patient ABO/Rh A Negative 05/09/21 10:17 Antibody Screen POSITIVE 05/09/21 10:17 Antibody Identification Anti-D 05/09/21 10:17 Crossmatch See Detail 05/09/21 10:17 Vital Signs Reviewed: Yes Subjective Patient Reports: No new Complaints Interval history since last seen: reports feeling frustrated with process but is staying determined to achieve vaginal delivery. States she feels contractions but is not uncomfortable with them. Nitrous use at times which works well for her at this time. Is planning epidural later. KH Results Hemoglobin/Hematocrit: Hgb 9.7 g/dL (11.2-15.7) L 05/09/21 10:17 Hct 31.4 % (36.0-46.0) L 05/09/21 10:17 Abnormal Lab Findings: Abnormal Labs 05/09/21 05/09/21 05/09/21 10:17 10:17 10:17 Hgb 9.7 L Hct 31.4 L MCV 77.9 L MCH 24.1 L MCHC 30.9 L RDW 15.4 H Carbon Dioxide 20.8 L Glucose 116 H AST 13 L ALT 12 L Albumin 2.3 L Crossmatch See Detail
--- NOTE | 2021-05-10 16:09 | W.PM.OBNL1 ---
Date of service: 05/10/21 Time of Service: 16:09 Informed Consent Informed Consent: Section Delivery, Induction of Labor and Other (ECV ) Pelvic Exam Dilation: 3 Effacement (%): 50 station: -3 Cervix Position: mid Consistency: soft Vaginal Exam Presentation: Cephalic Contractions Monitor Mode: Palpation Contraction Frequency(min): 2-3 Contraction Duration(sec): 60 Intensity: Moderate Fetus A Monitor: External (US) Heart Rate Baseline: 120 Variability: Moderate (6-25 BPM) Categories: Category I Accelerations: 15 X 15 Decelerations: None Assessment and Plan Assessment and plan (1) Encounter for induction of labor: Status: Acute Assessment and plan: will continue present management and reassess in 2 hours or prn, consider ROM if head is still well applied to cervix. KH Objective Temp Pulse Resp BP 98.1 F 82 20 143/85 H 05/10/21 11:57 05/10/21 13:56 05/10/21 11:57 05/10/21 13:56 Laboratory Results WBC 9.08 10^3/uL (4.4-10.8) 05/09/21 10:17 RBC 4.03 10^6/uL (3.93-5.22) 05/09/21 10:17 Hgb 9.7 g/dL (11.2-15.7) L 05/09/21 10:17 Hct 31.4 % (36.0-46.0) L 05/09/21 10:17 MCV 77.9 fL (80-95) L 05/09/21 10:17 MCH 24.1 pg (27.0-33.0) L 05/09/21 10:17 MCHC 30.9 % (32.0-36.0) L 05/09/21 10:17 RDW 15.4 % (11.7-14.6) H 05/09/21 10:17 Plt Count 315 10^3/uL (130-400) 05/09/21 10:17 MPV 10.5 fL (8.0-11.0) 05/09/21 10:17 Sodium 136 mmol/L (136-145) 05/09/21 10:17 Potassium 4.3 mmol/L (3.5-5.1) 05/09/21 10:17 Chloride 105 mmol/L (98-107) 05/09/21 10:17 Carbon Dioxide 20.8 mmol/L (21.0-32.0) L 05/09/21 10:17 Anion Gap 10.2 mmol/L (3-11) 05/09/21 10:17 BUN 12 mg/dL (7-18) 05/09/21 10:17 Creatinine 0.9 mg/dL (0.55-1.02) 05/09/21 10:17 Estimated GFR/1.73 m2 >= 60.00 (mL/min/1.73m2) 05/09/21 10:17 Glucose 116 mg/dL (74-106) H 05/09/21 10:17 Calcium 9.2 mg/dL (8.5-10.1) 05/09/21 10:17 Total Bilirubin 0.3 mg/dL (0.2-1.0) 05/09/21 10:17 AST 13 U/L (15-37) L 05/09/21 10:17 ALT 12 U/L (14-59) L 05/09/21 10:17 Alkaline Phosphatase 84 U/L (46-116) 05/09/21 10:17 Total Protein 7.0 g/dL (6.4-8.2) 05/09/21 10:17 Albumin 2.3 g/dL (3.4-5.0) L 05/09/21 10:17 COVID-19 Source Nasal/Nares 05/09/21 09:40 SARS-CoV-2 (PCR) Negative (Negative) 05/09/21 09:40 Patient ABO/Rh A Negative 05/09/21 10:17 Antibody Screen POSITIVE 05/09/21 10:17 Antibody Identification Anti-D 05/09/21 10:17 Crossmatch See Detail 05/09/21 10:17 Vital Signs Reviewed: Yes Subjective Interval history since last seen: feeling contractions and in comparing to a previous labor states it feels like they are making changes. KH Interventions Induction Indication: Chronic Maternal Diabetes, PreEclampsia and Successful External Version , Type of Induction: Pitocin , Induction Note: pitocin at 22 mu and will go up to max of [address] Mora. . Results Hemoglobin/Hematocrit: Hgb 9.7 g/dL (11.2-15.7) L 05/09/21 10:17 Hct 31.4 % (36.0-46.0) L 05/09/21 10:17 Abnormal Lab Findings: Abnormal Labs 05/09/21 05/09/21 05/09/21 10:17 10:17 10:17 Hgb 9.7 L Hct 31.4 L MCV 77.9 L MCH 24.1 L MCHC 30.9 L RDW 15.4 H Carbon Dioxide 20.8 L Glucose 116 H AST 13 L ALT 12 L Albumin 2.3 L Crossmatch See Detail
[2021-05-10] MEDS: FentaNYL/ROPIvacaine 2 mcg/ml and 0.1% 200 ML CADD Cassette EP (18:29)
--- NOTE | 2021-05-10 19:23 | W.ANESNEU ---
Epidural/Spinal Catheter Date Performed: 05/10/21 Procedure Start: 18:38 Procedure Stop: 18:50 Requesting Provider: Jennifer Mora Procedure Location: Obstetrics Reason Performed: Labor Epidural Standard Monitors Applied: Blood Pressure, SpO2 and See EMR for corresponding vital signs Patient Position: Sitting Sedation Given (Indicate Dose Given): No Sedation given Patient Mental Status: Awake Sterility: Hand Hygiene, Surgical Cap, Surgical Mask, Sterile Gloves, Sterile Drape/Sheet, Eye Protection and Chlorhexidine Procedure Location: L2-L3 Interspace Epidural Needle: Tuohy 18 Gauge Needle Length: 3.5 Inch Needle Approach: Midline Epidural Procedure: Skin Prepped, Sterile Drape Placed, 1% Lidocaine to skin and subcutaneous tissue with 25G needle, Tuohy Needle placed, MAXIMO to Air Used, Epidural Catheter Placed, Negative Heme, Negative CSF Flow and Tuohy Needle Removed Catheter Placed?: Catheter Placed Test Dose (Indicate Dose Given): 3ml 1.5% Lidocaine with 1:200K Epinephrine Given Loss of Resistance Depth (cm): 8 Catheter depth at skin (cm): 15 Dressing: [place] Dressing Placed Epidural Provider Bolus (Indicate Dose Given): None Given and Total Ropivacaine 0.1% with Fentanyl 2mcg/ml Given from pump (ml) Dose:: 3 Additives (Indicate Dose Given ): None Infusion Medication: No Infusion Started Block Level: T10 Paresthesia: Left Paresthesia Duration: Transient Ultrasound: Not Used Number of Attempts (See previous attempts in note section): 2 Procedure Tolerated: No Complications Procedure Outcome: Successful Performed By: Hansa Alan
--- NOTE | 2021-05-10 19:26 | PGE_ITS ---
Date of service: 05/10/21 Time of Service: 19:26 Informed Consent Informed Consent: Section Delivery, Induction of Labor and Other (ECV ) Pelvic Exam Dilation: 5 Effacement (%): 90 station: -3 Cervix Position: anterior Consistency: soft Vaginal Exam Presentation: Cephalic Comments: AROM at 1912 for copious amounts of clear fluid with blood tinge. Assisted by . Contractions Monitor Mode: Palpation Contraction Frequency(min): 3-4 Contraction Duration(sec): 60 Intensity: Moderate/Strong Fetus A Monitor: External (US) Heart Rate Baseline: 125 Presentation: Cephalic Variability: Moderate (6-25 BPM) Categories: Category I Accelerations: 15 X 15 Decelerations: None Amniotic Membrane Status: Ruptured Rupture Method: Artifical Amniotic Fluid: Clear and [place] Tinged Amount: large Date of Membrane Rupture: 05/10/21 Time of Membrane Rupture: 19:12 Assessment Note: tolerated AROM well, head well applied to cervix after large amount of fluid was released. Epidural is in place and providing patient with good pain relief. Assessment and Plan Assessment and plan (1) Encounter for induction of labor: Status: Acute Assessment and plan: Pitocin at 20 mu at this time will continue to monitor and expect NVD (2) Diabetes mellitus affecting : Status: Acute Assessment and plan: finger stick BG's have all been below 95 (3) Pre-eclampsia affecting , antepartum: Status: Acute Assessment and plan: BP in mild hypertension range after epidural placement and AROM performed Continues to deny TORRES, visual disturbance, swelling or epigastric pain (4) History of hemorrhage, currently : Status: Acute Assessment and plan: will review with team to be prepared for shoulder dystocia due to history as well at PPH [address] will plan to use bolus pitocin IV after baby delivers as well as cytotec 800 mcg rectally and frequent uterine massage after placenta is delivered. MD will remain in house for delivery and immediate PP period per CNM request. Objective Temp Pulse Resp BP Pulse Ox 98.2 F 96 H 18 147/88 H 100 05/10/21 16:22 05/10/21 19:25 05/10/21 16:22 05/10/21 19:25 05/10/21 18:47 Laboratory Results WBC 9.08 10^3/uL (4.4-10.8) 05/09/21 10:17 RBC 4.03 10^6/uL (3.93-5.22) 05/09/21 10:17 Hgb 9.7 g/dL (11.2-15.7) L 05/09/21 10:17 Hct 31.4 % (36.0-46.0) L 05/09/21 10:17 MCV 77.9 fL (80-95) L 05/09/21 10:17 MCH 24.1 pg (27.0-33.0) L 05/09/21 10:17 MCHC 30.9 % (32.0-36.0) L 05/09/21 10:17 RDW 15.4 % (11.7-14.6) H 05/09/21 10:17 Plt Count 315 10^3/uL (130-400) 05/09/21 10:17 MPV 10.5 fL (8.0-11.0) 05/09/21 10:17 Sodium 136 mmol/L (136-145) 05/09/21 10:17 Potassium 4.3 mmol/L (3.5-5.1) 05/09/21 10:17 Chloride 105 mmol/L (98-107) 05/09/21 10:17 Carbon Dioxide 20.8 mmol/L (21.0-32.0) L 05/09/21 10:17 Anion Gap 10.2 mmol/L (3-11) 05/09/21 10:17 BUN 12 mg/dL (7-18) 05/09/21 10:17 Creatinine 0.9 mg/dL (0.55-1.02) 05/09/21 10:17 Estimated GFR/1.73 m2 >= 60.00 (mL/min/1.73m2) 05/09/21 10:17 Glucose 116 mg/dL (74-106) H 05/09/21 10:17 Calcium 9.2 mg/dL (8.5-10.1) 05/09/21 10:17 Total Bilirubin 0.3 mg/dL (0.2-1.0) 05/09/21 10:17 AST 13 U/L (15-37) L 05/09/21 10:17 ALT 12 U/L (14-59) L 05/09/21 10:17 Alkaline Phosphatase 84 U/L (46-116) 05/09/21 10:17 Total Protein 7.0 g/dL (6.4-8.2) 05/09/21 10:17 Albumin 2.3 g/dL (3.4-5.0) L 05/09/21 10:17 COVID-19 Source Nasal/Nares 05/09/21 09:40 SARS-CoV-2 (PCR) Negative (Negative) 05/09/21 09:40 Patient ABO/Rh A Negative 05/09/21 10:17 Antibody Screen POSITIVE 05/09/21 10:17 Antibody Identification Anti-D 05/09/21 10:17 Crossmatch See Detail 05/09/21 10:17 Vital Signs Reviewed: Yes Subjective Interval history since last seen: Happy that she is making cervical changes. Agreed to AROM while Dr. Mora held baby in cephalic position. KH Interventions Pain Management Interventions: Epidural ./ Induction Indication: Chronic Maternal Diabetes, PreEclampsia and Successful External Version , Type of Induction: Artifical Rupture of Membranes , Results Hemoglobin/Hematocrit: Hgb 9.7 g/dL (11.2-15.7) L 05/09/21 10:17 Hct 31.4 % (36.0-46.0) L 05/09/21 10:17 Abnormal Lab Findings: Abnormal Labs 05/09/21 05/09/21 05/09/21 10:17 10:17 10:17 Hgb 9.7 L Hct 31.4 L MCV 77.9 L MCH 24.1 L MCHC 30.9 L RDW 15.4 H Carbon Dioxide 20.8 L Glucose 116 H AST 13 L ALT 12 L Albumin 2.3 L Crossmatch See Detail
[2021-05-11] VITALS (11 sets, daily range): BP systolic 112–163; BP diastolic 76–92; PULSE 84–110; RESP 12–18; TEMP 36.6–37; O2SAT 97–98
[2021-05-11] MEDS: miSOPROStol 200 MCG TAB 800 MCG PR (00:32)
--- NOTE | 2021-05-11 00:43 | OBVDS_ITS ---
Date of service: 05/11/21 Time of Service: 00:43 OB Labor/ Delivery Information Baby A Delivery Delivery Method: Spontaneaous Presentation: Cephalic Vertex Position: Left Occipital Anterior Cord Description-Baby A: 3 Vessels Cord Description Comment: 3 vessels Amniotic Fluid: Clear Estimated Blood Loss: 150 ml Delivery Outcome: Liveborn Transferred: Remains with Mother Note: Live male delivers ERICKA over intact perineum at 0023. Baby is delivered onto Maternal abdomen by FOB and CNM. Baby is placed skin to skin. Spontaneous cry noted. Positive family bonding noted. IV pitocin is infusing per PP orders and misoprostol 800 mcg was placed rectally to help prevent PPH due to history. Placenta delivers with gentle maternal pushing effort at 0034, intact. Fundus firms to U-1 with massage and medications previously noted. Dr. Mora was attending at this time and is aware of delivery. EBL 150 ml. Perineum intact, bimanual reveals intact cervix and firm lower uterine segment. Sponge, needle and instrument count correct. scores 7 and 8. Baby oscar Álvarez is doing well. Weight 7lb 6oz. Parents plan to breast feed, decline circumcision and are planning vasectomy for contraception. Expect normal PP course. Providers Doctor: Jennifer Mora Nurse Merchant Seaman: Meena Dowell Nurse: Herminia Warner Nurse: Nan Ureña Labor/Delivery Information Number of Babies in Womb: 1 Steroids Given: None Reason Steroids Not Administered: N/A Group Beta Strep: N/A Antibiotics Administered: No Rubella Status: Immune Blood Type: A- Varicella Immunity: Immune Medication in Delivery: nitrous Born En Route: No Maternal Complications: None Shoulder Dystocia: No Stages of Labor Onset of Labor Date: 05/09/21 Complete Dilatation Date: 05/11/21 Complete Dilatation Time: 00:15 ROM Baby A: 05/11/21 ROM Baby A: 19:12 Delivery Date-Baby A: 05/11/21 Delivery Time-Baby A: 00:23 Labor Stage 2 Duration: 8 minutes Placenta Delivery Date-Baby A: 05/11/21 Placenta Cultured: No Baby A Infant Gender: Male Gestational Status: Early Term (37-38.6 wks) weight: 7 lb 7.579 oz
[2021-05-11] MEDS: Lactated Ringers 1,000 ML 125 ML IV (02:06)
[2021-05-11] MEDS: Acetaminophen 325 MG TAB 650 MG PO ×4 (04:16→20:47)
[2021-05-11] MEDS: Ibuprofen 600 MG TAB PO ×3 (04:18→21:37)
[2021-05-11] MEDS: Normal Saline Flush 10 ML SYR IVP (08:33)
--- NOTE | 2021-05-11 14:58 | W.ANESPOSTOP ---
Postoperative Evaluation Date, Time and Location Date Performed: 05/11/21 Time Performed: 14:58 Patient Location: Obstetrics Vital Signs Most Recent Imported Vital Signs: Most Recent Vital Signs Temp Pulse Resp BP Pulse Ox 36.8 C 100 H 18 121/85 97 05/11/21 12:54 05/11/21 12:54 05/11/21 12:54 05/11/21 12:54 05/11/21 12:54 Pain Score Most Recent Pain Score: Most Recent Pain Score Pain Level [Abdomen] 4 05/09/21 23:31 Pain Level 7 05/11/21 08:41 Assessment Mental Status: Awake (Alert & Oriented to Patient Baseline) Airway and Respiratory Function: Patent airway with normal (patient baseline) respiratory exam Cardiovascular Function: Hemodynamically Stable Hydration Status: Adequately Hydrated Nausea & Vomiting: No Nausea or Vomiting Pain: Pt. Denies Any Pain Peripheral Nerve Block: Patient did not receive a nerve block Postoperative Comments:: Epidural site assessed. No swelling, pain, or tenderness.
--- NOTE | 2021-05-11 15:36 | OBPPV_ITS ---
Date of service: 05/11/21 Time of Service: 15:37 Assessment and Plan Assessment and plan (1) Term of male : Status: Acute Assessment and plan: Discharge planned for tomorrow morning. Will review discharge instructions at that time. (2) Pre-eclampsia affecting , antepartum: Status: Acute Assessment and plan: continue to assess blood pressure. Subjective Subjective Interval history: Nathalie delivered early this morning after induction of labor for preeclampsia without severe features and gestational diabetes and unstable lie. of male . Nathalie feels well and is well but baby has been spitting up mucus. Patient comments: Pain well controlled baby status: Doing well [place] feeding status: Exclusively breast feeding Exam Physical Exam Vital signs: Temp Pulse Resp BP Pulse Ox 98.2 F 100 H 18 121/85 97 05/11/21 12:54 05/11/21 12:54 05/11/21 12:54 05/11/21 12:54 05/11/21 12:54 Vital Signs Reviewed: Yes Constitutional Constitutional: no acute distress Respiratory Exam Respiratory Exam: Normal Cardiovascular Exam Cardiovascular Exam: Normal Fundal Exam Fundus: Below Umbilicus and Firm Rectal Exam Rectal Exam: Normal Extremities Exam Extremity Exam: Normal Skin Exam Skin Exam: Normal Psychiatric Exam Psychiatric Exam: Normal Results Hemoglobin/Hematocrit: Hgb 9.7 g/dL (11.2-15.7) L 05/09/21 10:17 Hct 31.4 % (36.0-46.0) L 05/09/21 10:17 Abnormal Lab Findings: Abnormal Labs 05/09/21 05/09/21 05/09/21 10:17 10:17 10:17 Hgb 9.7 L Hct 31.4 L MCV 77.9 L MCH 24.1 L MCHC 30.9 L RDW 15.4 H Carbon Dioxide 20.8 L Glucose 116 H AST 13 L ALT 12 L Albumin 2.3 L Crossmatch See Detail
[2021-05-11] MEDS: Docusate Sodium 100 MG CAP PO ×2 (15:44→20:46)
[2021-05-12] MEDS: Acetaminophen 325 MG TAB 650 MG PO (06:04)
[2021-05-12] MEDS: Ibuprofen 600 MG TAB PO (06:04)
[2021-05-12 08:30] VITALS: BP 141/83; PULSE 87; RESP 18; TEMP 36.8; O2SAT 98
--- NOTE | 2021-05-12 10:58 | W.PM.OBDISCH ---
Date of service: 05/12/21 Time of Service: 10:59 DS: Diagnosis Discharge Diagnosis (1) Term of male : Status: Acute Asessment and Plan: Caring for baby independently. Pain is managed well with oral analgesics. Voiding without difficulty. well. A - stable mother and baby , Post day 2 P - Discharge to home. Routine post instructions. [facility]. (2) Pre-eclampsia affecting , antepartum: Status: Acute Discharge Plan Discharge Details Reason For Visit: Pre-existing Diabetes Affecting ,AMA, Admit Date/Time: 05/09/21 09:28 Admit Provider: Tressa England Attending Provider: Tressa England Primary Care Provider: Kory Abel Home Meds and New Rx's Prescriptions: No Action prenat.vits,pietro,xcn-zyrt-xyryn Tablet 1 tab PO DAILY RF: 0 magnesium 250 mg tablet 500 mg PO DAILY PRNRF: 0 cholecalciferol (vitamin D3) 4,000 unit capsule 4,000 unit PO DAILY RF: 0 aspirin [Aspirin Childrens] 81 mg tablet,chewable 81 mg PO DAILY RF: 0 (DME) FreeStyle Lite Strips Strip See Rx Instructions .ROUTE .MEDSUPPLY Qty: 100 RF: 5 Discharge Instructions Activity:: Activity as Tolerated Activity:: Activity as Tolerated Equipment/Supplies:: No Equipment Needed Diet:: As Tolerated OB:DS Summary Summary Vaginal Delivery Method: Spontaneaous Episiotomy Description: None Laceration Description: None Laceration Extension: N/A Contraception Discussed Contraception Discussed: Yes (POP and vasectomy), [place] Gender-Baby A: Male weight: 7 lb 7.579 oz Status at Discharge Functional status at discharge: independent ambulation Overall status at discharge: patient is back to baseline Mental Status: mental status grossly normal Speech and Movement: speech and movement normal Mood: congruent mood Affect: normal affect Exam Physical Exam Vital signs: Temp Pulse Resp BP Pulse Ox 98.2 F 87 18 141/83 H 98 05/12/21 08:30 05/12/21 08:30 05/12/21 08:30 05/12/21 08:30 05/12/21 08:30 Vital Signs Reviewed: Yes Constitutional Constitutional: no acute distress Respiratory Exam Respiratory Exam: Normal Cardiovascular Exam Cardiovascular Exam: Normal Fundal Exam Fundus: Below Umbilicus and Firm Exam Patient deferred: external exam External: Present normal urethra appearance Comments: delivered over intact perineum. No discomfort. Extremities Exam Extremity Exam: Normal [facility] Medical History (Updated 05/11/21 @ 15:40 by Meena Pa CNM) ASCUS with positive high risk HPV BMI 36.0-36.9,adult Family history of ovarian cancer History of gestational diabetes mellitus (GDM) History of gestational hypertension Ulcerative colitis Surgical History Dilation and curettage (05/09/17) D&C for missed AB @ 7w6d. ao Family History Mother Ovarian cancer 64 Diabetes borderline Father Essential hypertension Hyperlipidemia Sister No problems noted. Maternal Grandfather , in his 50s Colon cancer Paternal Grandfather , in his 70s Stroke Maternal Grandmother , age 75 Cancer female Paternal Grandmother , age 90 No problems noted. MATERNAL UNCLE/AUNT Diabetes Daughter No problems noted. Daughter No problems noted. Other Family history of diabetes mellitus Family history of ovarian cancer Social History Smoking/Tobacco Use Status: Never Second Hand Exposure: No Smoking risk assessment performed?: Yes Alcohol Intake: never Drug use: Never Substance use type: does not use Caregiver/Support person: No Household members: spouse and children Housing: house Pets and animals: Yes Pets and animals: cat(s) Sexually active: Yes Do you think of yourself as: straight/heterosexual Current gender identity: female What is your relationship status?: How often do you talk on the phone with friends or family?: three or more times per week How often do you get together with friends or relatives?: once per week How often do you attend mu-ism or worship services?: 1-3 times per year Do you belong to any clubs or organized social groups?: no Panel score (0-1 are the most socially isolated patients): 2 What type of physical activity do you participate in: walking Duration: 15-30 minutes/day Frequency: 1-2 times per week Rita/Evangelical: Jewish Special rita needs: No Seatbelt use: always Helmet use: Yes Helmet use: always Drive intox or ride w/intox pick up and delivery driver: No Working smoke detector in home: No Do you feel safe at home: Yes Do you feel safe in your relationship?: Yes Female Reproductive History Menstrual control method: none History History 6 Para 4 Hx # Term Pregnancies 4 Multiple births 0 Hx # Pregnancies 0 Ectopic pregnancies 0 AB induced 0 Hx Number of Living Children 4 AB spontaneous 1 Past Pregnancies Del. Date GA/Weeks # Outcome Route Wgt Sex Labor Lgth Anesthesia Location Prov Complic 12/31/04 36 No Successful vaginal 7 lb 13 oz Female 9 hrs [place], n[facility] mason hemorrhage 11/13/06 39 No Successful vaginal 9 lb 13 oz Female 5hrs [facility] shoulder dystocia 04/26/18 39 No Successful vaginal 8 lb 10 oz Female 8 hr [facility] aj khan cn 12/11/19 38 No Successful vaginal 9 lb 6 oz Male 12 hours [facility] Delivery Date: 12/31/04 transfused x 2 units w/o reaction. probable chorio as per placental cx. pt delivered at [facility] after being shipped from [facility] to [facility]. Elma Mora Delivery Date: 11/13/06 w/ s/d maneuvers delivery occurred. obtain delivery record of delivery. Elma Mora Delivery Date: 04/26/18 iol for gdm and lga. w/o delivery complications Elma Mora Delivery Date: 12/11/19 IOL,nuchal cord, miso and pitocin, epidural Meena Ashby DS: Data Vitals/I&O Vitals and I&O: Vital Signs Temperature 98.2 F 05/12/21 08:30 Pulse 87 05/12/21 08:30 Pulse Rhythm Regular 05/12/21 08:30 Respiratory Rate 18 05/12/21 08:30 Respiratory Depth Normal 05/11/21 08:55 Blood Pressure 141/83 H 05/12/21 08:30 Blood Pressure Mean 102 05/12/21 08:30 Pulse Oximetry 98 05/12/21 08:30 Oxygen Delivery Method Room Air 05/09/21 09:28 Oxygen Flow Rate 0 05/09/21 09:28 Pain Level 6 05/12/21 06:04 Intake & Output 05/11/21 05/11/21 05/12/21 11:59 23:59 11:59 Intake Total 956.25 / 2204.817 1248.567 / 2204.817 Output Total 975 / 975 Balance -18.75 / 9100.421 3513.567 / 1229.817 Intake: IV 956.25 / 2204.817 1248.567 / 2204.817 Output: Urine 975 / 975 Other: Urine Color [place] Urine Appearance Clear Data Completed and Pending Labs on day of discharge: Labs from last 24 hours 05/12/21 05/09/21 08:34 10:17 Patient ABO/Rh A Negative Antibody Screen POSITIVE Antibody Identification Anti-D Screen Pending Crossmatch See Detail Unit Expiration Date 01/27/23 Product Lot # [id number]
== END 2021-05-12 11:10 | disposition home or self-care (01) | DRG 806 ==
PROVIDERS: Advanced Practice Midwife; Admitting Provider Obstetrics & Gynecology; PCP Nurse Practitioner Family; Visit Provider Obstetrics & Gynecology
DX: O14.04 Mild to moderate pre-eclampsia, complicating childbirth (principal); O36.0930 Maternal care for other rhesus isoimmunization, third trimester, not applicable or unspecified; Z37.0 Single live birth; O24.82 Other pre-existing diabetes mellitus in childbirth; O32.2XX0 Maternal care for transverse and oblique lie, not applicable or unspecified; O99.02 Anemia complicating childbirth; D64.9 Anemia, unspecified; Z3A.38 38 weeks gestation of pregnancy
CPT/HCPCS: 59412; 36415; 80053; 85027; 85461; 86850; 86900; 86901; 86920; 87635; 90384; 59025; 86870; J2790

== ENCOUNTER 2022-09-01 15:48 | Emergency (ER) | payer BC, SELFPAY ==
[2022-09-01 15:59] VITALS: BP 136/96; PULSE 98; RESP 18; TEMP 37; O2SAT 99
--- NOTE | 2022-09-01 16:06 | W.ED.GENAD ---
Discharge Plan Disposition Patient Disposition: Home Condition: Stable Discharge Details Clinical Impression: Bilateral kidney stones Primary Care Provider: Kory Abel ED Provider: Juliette Gonsalez Home Meds and New Rx's Prescriptions: Continued lisinopril 10 mg tablet 10 mg PO DAILY Qty: 90 3RF Discharge Instructions Instructions: Kidney Stones (ED), How to Strain Your Urine (ED) Additional Instructions: On CT you have multiple small kidney stones in both kidneys. This would explain the blood in your urine. You may start to have some pain of these kidney stones move. Please take Tylenol or Ibuprofen with food every 4-6 hours as needed for pain and swelling. Use a strainer with urination if you catch a stone you may take it with you to urology. Please be seen sooner or return to the ER if you have any problems urinating, vomiting, pain that is not relieved by Tylenol or ibuprofen, fever or any concerns. Follow up with urology/primary care provider in 7-10 days. Return to ED sooner if any worsening or concerns. Increase oral fluids. Referrals: Kory Abel, [employer]ER [Primary Care Provider] - Return if symptoms worsen Anais Dixon DNP [NURSE PRACTITIONER] - 1 week Discharge Data Discharge Date/Time-TO BE ENTERED AT DEPARTURE: 09/01/22 18:01 Medical Decision Making 42 year old female presents to the ED after being seen at urgent care for hematuria. Patient reports noting dark urine last night. Does endorse nausea, no vomiting, denies back pain or supra pubic tenderness. Denies fever, body aches. Hx of gestation DM, recent HTN dx and just started on Lisinopril 2 days, ago, she did not take it today. hx of ulcerative colitis, anemia. Is not on any control pills, she is due to start her menses in approximately 1 week. CBC, CMP UA and Urine preg ordered. Will consider CT if heme positive for R/o Kidney stone. Dif Dx includes KS, menses, 1036: Informed by clinical staff rn that patient basal during blood draw, vital signs are stable, patient was given some juice feel somewhat better. She reports this is happened before. Urinalysis shows large blood, greater than 300 protein trace ketones small bilirubin greater than 50 RBCs 3-5 WBCs culture not indicated at this time due to squamous contamination. Also few yeast. Moderate mucus. Will order CT renal colic without contrast. CT shows bilateral nonobstructing kidney stones which would explain the blood in her urine. Labs are largely unremarkable no leukocytosis, glucose is 109. We will give patient a urine strainer, follow-up with urology and/or PCP. Will instruct on if patient does have pain decreased urination to return to the ER or be seen by her PCP. This text was generated using [email or web address] system, please disregard any oddities of phrase or misspellings. Imaging Data Radiologic Study: Imaging: CT Scan Radiologist's impression: FINDINGS: Liver: Normal. No mass. Gallbladder and bile ducts: Normal. No calcified stones. No ductal dilation. Pancreas: Normal. No ductal dilation. Spleen: Normal. No splenomegaly. Adrenal glands: Normal. No mass. Kidneys and ureters: Nonobstructing bilateral renal calculi. Stomach and bowel: Unremarkable. No obstruction. No mucosal thickening. Appendix: No evidence of appendicitis. Intraperitoneal space: Unremarkable. No free air. No significant fluid collection. Vasculature: Unremarkable. No abdominal aortic aneurysm. Lymph nodes: Unremarkable. No enlarged lymph nodes. Urinary bladder: Bladder not well distended. Reproductive: Unremarkable as visualized. Bones/joints: Unremarkable. No acute fracture. Soft tissues: Small to moderate-sized fat containing periumbilical hernia. IMPRESSION: Bilateral nonobstructing renal calculi. No acute abnormality evident. Thank you for allowing us to participate in the care of your patient. Dictated and Authenticated by: Fatemeh Palencia MD Lab Data Lab results reviewed: Yes I reviewed the patient's lab results. Labs: Laboratory Tests Range/Units 09/01/22 09/01/22 09/01/22 16:10 16:33 16:33 WBC (4.4-10.8) 10^3/uL 4.73 RBC (3.93-5.22) 10^6/uL 4.75 Hgb (11.2-15.7) g/dL 12.8 Hct (36.0-46.0) % 39.4 MCV (80-95) fL 83 MCH (27.0-33.0) pg 26.9 L MCHC (32.0-36.0) % 32.5 RDW (11.7-14.6) % 13.8 Plt Count (130-400) 10^3/uL 249 MPV (8.0-11.0) fL 8.8 Immature Gran % 0.4 Neutrophils % 68.7 Lymphocytes % 19.5 Monocytes % 9.7 Eosinophils % 1.3 Basophils % 0.4 Nucleated RBC % (0.0-0.3) % 0.0 Absolute Neutrophils (1.2-6.7) 10^3/uL 3.25 Absolute Lymphocytes (1.2-3.4) 10^3/uL 0.92 L Absolute Monocytes (0.1-0.8) 10^3/uL 0.46 Absolute Eosinophils (0.0-0.7) 10^3/uL 0.06 Absolute Basophils (0.0-0.2) 10^3/uL 0.02 Sodium (136-145) mmol/L 136 Potassium (3.5-5.1) mmol/L 4.0 Chloride (98-107) mmol/L 102 Carbon Dioxide (21.0-32.0) mmol/L 27.2 Anion Gap (3-11) mmol/L 6.8 BUN (7-18) mg/dL 13 Creatinine (0.55-1.02) mg/dL 1.0 Est GFR (CKD-EPI 2020) (mL/min/1.73m2) 72.58 Glucose (74-106) mg/dL 109 H Calcium (8.5-10.1) mg/dL 9.1 Total Bilirubin (0.2-1.0) mg/dL 0.4 AST (15-37) U/L 18 ALT (14-59) U/L 18 Alkaline Phosphatase (46-116) U/L 66 Total Protein (6.4-8.2) g/dL 7.8 Albumin (3.4-5.0) g/dL 3.4 Urine Color (Yellow) Red Urine Clarity (Clear) Cloudy Urine pH (5-8) 6.0 Ur Specific [place] (1.005-1.025) 1.025 Urine Protein (Negative) mg/dL >=300 H Urine Ketones (Negative) mg/dL Trace H Urine Blood (Negative) Large H Urine Nitrite (Negative) Negative Urine Bilirubin (Negative) Small H Urine Urobilinogen (Up TO 0.2) EU/dL 1.0 H Ur Leukocyte Esterase (Negative) Negative Urine RBC (0-2) HPF >50 H Urine WBC (0-5) HPF 3-5 Ur Epithelial Cells (Negative) HPF Many Urine Crystals (Negative) HPF Negative Urine Bacteria (Negative) HPF Few Urine Casts (Negative) LPF Negative Urine Mucus (Negative) Moderate Urine Other (Negative) Few Yeast Ur Culture Indicated? No/Sq. Contamination Urine Glucose (Negative) mg/dL Negative HPI General Mode of arrival: ambulatory. Date/Time Provider Initiated Documentation: 09/01/22 15:56. Limitations to Documentation: no limitations. Information obtained by: patient, RN notes reviewed and old records reviewed. HPI Narrative: 42 year old female presents to the ED after being seen at urgent care for hematuria. Patient reports noting dark urine last night. Does endorse nausea, no vomiting, denies back pain or supra pubic tenderness. Denies fever, body aches. Hx of gestation DM, recent HTN dx and just started on Lisinopril 2 days, ago, she did not take it today. hx of ulcerative colitis, anemia. Is not on any control pills, she is due to start her menses in approximately 1 week. Related Data Home Medications Medication Instructions Recorded Confirmed lisinopril 10 mg tablet 10 mg PO DAILY #90 tabs 08/30/22 09/01/22 Previous Rx's Medication Instructions Recorded lisinopril 10 mg tablet 10 mg PO DAILY #90 tabs 08/30/22 Allergies Allergy/AdvReac Type Severity Reaction Status Date / Time No Known Drug Allergies Allergy Unknown Verified 09/01/22 15:00 General Stated Complaint: GenMedical LATIA: 3 Review of Systems All systems reviewed & are unremarkable except as noted in HPI and below Gastrointestinal Gastrointestinal: Denies diarrhea, Denies nausea and Denies vomiting Genitourinary Genitourinary: Reports as per HPI, Reports hematuria, Denies dysuria and Denies flank pain PFSH All Active Problems (Updated 09/01/22 @ 17:49 by Juliette Gonsalez NP) Bilateral kidney stones (Acute) Essential (primary) hypertension (Acute) Anemia (Chronic) Only when BMI 36.0-36.9,adult (Acute) ASCUS with positive high risk HPV (Acute) Family history of ovarian cancer (Acute) Ulcerative colitis (Chronic 07/16/14) Medical History (Updated 09/01/22 @ 17:49 by Juliette Gonsalez NP) 2 weeks follow-up 12 weeks gestation of Advanced maternal age (AMA) in BMI 32.0-32.9,adult (10/05/17) Calculus of kidney (07/19/15) Diabetes mellitus affecting Encounter for induction of labor Gestational diabetes History of gestational diabetes mellitus (GDM) History of gestational hypertension History of hemorrhage, currently Hx of macrosomia, infant of prior , currently Low-lying placenta in second trimester Pre-eclampsia affecting , antepartum Prior shoulder dystocia at delivery, antepartum Proteinuria affecting Rh negative state in antepartum period Successful external cephalic version Term of male Transverse lie of fetus Ulcerative colitis Unstable lie of fetus Surgical History Dilation and curettage (05/09/17) D&C for missed AB @ 7w6d. aoc Family History Mother Ovarian cancer 64 Diabetes borderline Father Essential hypertension Hyperlipidemia Sister No problems noted. Maternal Grandfather , in his 50s Colon cancer Paternal Grandfather , in his 70s Stroke Maternal Grandmother , age 75 Cancer female Paternal Grandmother , age 90 No problems noted. MATERNAL UNCLE/AUNT Diabetes Daughter No problems noted. Daughter No problems noted. Other Family history of diabetes mellitus Family history of ovarian cancer Social History (Updated 08/31/22 @ 15:02 by Lissy Potts) Smoking/Tobacco Use Status: Never Second Hand Exposure: Yes Smoking risk assessment performed?: Yes Alcohol Intake: never Drug use: Never Substance use type: does not use Caregiver/Support person: No Household members: spouse and children Housing: house Communication Needs: None Pets and animals: Yes Pets and animals: cat(s) Sexually active: Yes Do you think of yourself as: straight/heterosexual Current gender identity: female What is your relationship status?: How often do you talk on the phone with friends or family?: three or more times per week How often do you get together with friends or relatives?: never How often do you attend episcopal or pentecostalism services?: decline to answer Do you belong to any clubs or organized social groups?: no Panel score (0-1 are the most socially isolated patients): 2 What type of physical activity do you participate in: walking Duration: < 15 minutes/day Frequency: daily Rita/Christian: No preference Special rita needs: No Seatbelt use: always Helmet use: Yes Helmet use: always Drive intox or ride w/intox motor driver: No Working smoke detector in home: No Do you feel safe at home: Yes Do you feel safe in your relationship?: Yes Female Reproductive History Menstrual control method: none History History 6 Para 5 Hx # Term Pregnancies 5 Multiple births 0 Hx # Pregnancies 0 Ectopic pregnancies 0 AB induced 0 Hx Number of Living Children 5 AB spontaneous 1 Past Pregnancies Del. Date GA/Weeks # Preg Succ Route Wgt Sex Labor Lgth Anesthesia Location Prov Complic Unknown VICKY [facility] 12/31/04 36 No vaginal 3543.69 g Female 9 hrs [place], n.h [facility] hemorrhage 11/13/06 39 No vaginal 4450.875 g Female 5hrs [facility] shoulder dystocia 04/26/18 39 No vaginal 3912.234 g Female 8 hr [facility] aj khan cnm 12/11/19 38 No vaginal 4252.428 g Male 12 hours [facility] Ember PERRY 05/11/21 37 No vaginal 3345.244 g Male local VICKY [place] Delivery Date: Last Updated by: DANIELITO Chakraborty [place] Delivery Date: 12/31/04 Last Updated by: Elma Mora CNM transfused x 2 units w/o reaction. probable chorio as per placental cx. pt delivered at [place] after being shipped from [facility] 2 to [facility]. Delivery Date: 11/13/06 Last Updated by: Elma Mora CNM w/ s/d maneuvers delivery occurred. obtain delivery record of delivery. Delivery Date: 04/26/18 Last Updated by: Elma Mora CNM iol for gdm and lga. w/o delivery complications Delivery Date: 12/11/19 Last Updated by: Meena Pa CNM IOL,nuchal cord, miso and pitocin, epidural Sam Exam Narrative Exam Narrative: Constitutional: Alert and oriented x3. Appears stated age. Normal body habitus. Head: Normocephalic, no trauma. Eyes: Pupils PERRL, Red reflex noted, EOM's intact. Eyelids symmetrical without lesions, discharge, or swelling. Chest: RRR, Normal S1, S2, distal pulses intact. Resp: Lungs clear to auscultation bilaterally, no wheezes, rales, or rhonchi. Abdomen: Soft, non-distended, Normoactive bowel sounds all 4 quads. Musculoskeletal: Normal gait, 5/5 strength to all four extremities. Skin: No suspicious rashes or lesions. Capillary refill less than 2 sec. Neurologic: Cranial nerves II-XII intact. Alert and oriented x 3. Motor: No deficits noted. Sensory: Intact bilaterally all 4 extremities. Reflexes: DTR's intact bilaterally.. Hematologic/Lymphatic: No ecchymosis, no lymphadenopathy. Course Vital Signs Vital signs: Vital Signs Temperature 37.0 C 09/01/22 15:59 Pulse 98 H 09/01/22 15:59 Respiratory Rate 18 09/01/22 15:59 Blood Pressure 136/96 H 09/01/22 15:59 Pulse Oximetry 99 09/01/22 15:59 Temperature 37.0 C 09/01/22 15:59 Temperature Source Tympanic 09/01/22 15:59 Pulse 98 H 09/01/22 15:59 Respiratory Rate 18 09/01/22 15:59 Respiratory Effort 09/01/22 16:04 Respiratory Depth Normal 09/01/22 16:04 Respiratory Pattern Normal 09/01/22 16:04 Blood Pressure 136/96 H 09/01/22 15:59 Pulse Oximetry 99 09/01/22 15:59 Oxygen Delivery Method Room Air 09/01/22 15:59 Oxygen Flow Rate 0 09/01/22 15:59 Pain Level 5 09/01/22 15:59
[2022-09-01 16:19] LABS: Bilirubin Small (Negative); Blood Large (Negative); Clarity Cloudy (Clear); Glucose Negative (Negative); Ketones Trace mg/dL (Negative); Leukocyte Esterase Negative (Negative); Nitrite Negative (Negative); Specific Gravity 1.025 (1.005-1.025)
[2022-09-01 16:27] LABS: Bacteria Few HPF (Negative); C & S Indicated? No/Sq. Contamination; Casts Negative LPF (Negative); Crystals Negative HPF (Negative); Epithelial Cells Many HPF (Negative); Mucus Moderate (Negative); Other Cells Few Yeast (Negative); RBC >50 HPF (0-2)
--- NOTE | 2022-09-01 16:30 | DI.CT_ITS ---
Exam(s) CT RENAL COLIC WO EXAM: CT RENAL COLIC WO CLINICAL HISTORY: Hematuria. TECHNIQUE: Imaging Protocol: Axial computed tomography images with coronal and sagittal reformatted images were created and reviewed. CONTRAST MATERIAL: Noncontrast COMPARISON: CT RENAL COLIC WO CONTRAST from 05/31/2015 FINDINGS: ABDOMEN: Lung Bases: Normal where visualized. Liver: Mildly enlarged. Ckee-[id number] hepatic steatosis. No measurable mass. Gallbladder and biliary tract: No radiodense calculus or dilation. Pancreas: Normal density, no calcifications or inflammatory process. Spleen: Normal. Kidneys: Normal size, contour and axis. Punctate bilateral nonobstructing renal calculi. No obstruc tive uropathy. No masses seen. Adrenal glands: No masses seen. Abdominal Aorta: Abdominal portion non-dilated. Soft tissues: Small fatty containing umbilical hernia. PELVIS: Bladder: Symmetric distention, no gross wall thickening. No evidence of stones.No visible mass. Bowel: No obstruction or bowel wall thickening. Appendix normal. Normal quantity of stool. Reproductive: Unremarkable. Peritoneal cavity: No ascites, collection or mesenteric inflammatory response. Bones: Unremarkable for age.. IMPRESSION: Small bilateral nonobstructing renal calculi. RADIATION DOSE DELIVERED: 1,104.09mGy.cm Total DLP DATA REPOSITORY: All CT scans at this facility are submitted to the National Radiology Data Registry (NRDR) Dose Index Registry (DIR) with the [employer] (ACR). RADIATION OPTIMIZATION: All CT scans at this facility use at least one of these dose optimization te chniques: automated exposure control; mA and/or kV adjustment per patient size (includes targeted exa ms where dose is matched to clinical indication); or iterative reconstruction.
[2022-09-01 16:40] VITALS: BP 117/76; PULSE 84; RESP 16; TEMP 37.8; O2SAT 98
[2022-09-01 16:41] LABS: Abs Immature Grans 0.02 10^3/uL (0.0-0.06); Absolute Basophil Count 0.02 10^3/uL (0.0-0.2); Absolute Eosinophil Count 0.06 10^3/uL (0.0-0.7); Absolute Lymphocyte Count 0.92 10^3/uL (1.2-3.4); Absolute Monocyte Count 0.46 10^3/uL (0.1-0.8); Absolute Neutrophil Count 3.25 10^3/uL (1.2-6.7); Basophils % 0.4; Eosinophils % 1.3; HCT 39.4 % (36.0-46.0); HGB 12.8 g/dL (11.2-15.7); Immature Grans % 0.4; Lymphocytes % 19.5; MCH 26.9 pg (27.0-33.0); MCHC 32.5 % (32.0-36.0); MCV 83 fL (80-95); MPV 8.8 fL (8.0-11.0); Monocytes % 9.7; Neutrophils % 68.7; Platelet Count 249 10^3/uL (130-400); RBC 4.75 10^6/uL (3.93-5.22); RDW 13.8 % (11.7-14.6); RDW-SD 42.2 fL; WBC 4.73 10^3/uL (4.4-10.8)
[2022-09-01 17:02] LABS: ALT 18 U/L (14-59); AST 18 U/L (15-37); Albumin 3.4 g/dL (3.4-5.0); Alkaline Phosphatase 66 U/L (46-116); Anion Gap 6.8 mmol/L (3-11); BUN 13 mg/dL (7-18); Bilirubin, Total 0.4 mg/dL (0.2-1.0); CO2 27.2 mmol/L (21.0-32.0); Calcium 9.1 mg/dL (8.5-10.1); Chloride 102 mmol/L (98-107); Estimated GFR 72.58 (mL/min/1.73m2); Glucose 109 mg/dL (74-106); Sodium 136 mmol/L (136-145); Total Protein 7.8 g/dL (6.4-8.2)
--- NOTE | 2022-09-01 17:38 | DI.VRAD_ITS ---
PROCEDURE INFORMATION: Exam: CT Abdomen And Pelvis Without Contrast Exam date and time: 09/01/2022 5:16 PM Age: 42 years old Clinical indication: Other: Hematuria; Patient HX: History of kidney stones TECHNIQUE: Imaging protocol: Computed tomography of the abdomen and pelvis without contrast. COMPARISON: OB US 2-3 TRIMESTER TRANSABD*P 12/04/2017 12:29 PM FINDINGS: Liver: Normal. No mass. Gallbladder and bile ducts: Normal. No calcified stones. No ductal dilation. Pancreas: Normal. No ductal dilation. Spleen: Normal. No splenomegaly. Adrenal glands: Normal. No mass. Kidneys and ureters: Nonobstructing bilateral renal calculi. Stomach and bowel: Unremarkable. No obstruction. No mucosal thickening. Appendix: No evidence of appendicitis. Intraperitoneal space: Unremarkable. No free air. No significant fluid collection. Vasculature: Unremarkable. No abdominal aortic aneurysm. Lymph nodes: Unremarkable. No enlarged lymph nodes. Urinary bladder: Bladder not well distended. Reproductive: Unremarkable as visualized. Bones/joints: Unremarkable. No acute fracture. Soft tissues: Small to moderate-sized fat containing periumbilical hernia. IMPRESSION: Bilateral nonobstructing renal calculi. No acute abnormality evident. Dictated and Authenticated by: Fatemeh Palencia MD. Ordering:ANIYA Segovia MD
--- NOTE | 2022-09-01 17:51 | NUR.NOTE ---
Nursing Note: PT info faxed to Urology for follow up in 1-2 weeks for bilateral kidney stones. Aline, ED
== END 2022-09-01 18:01 | disposition home or self-care (01) ==
PROVIDERS: Emergency Provider Registered Nurse Emergency; PCP Nurse Practitioner Family
DX: N20.0 Calculus of kidney (principal); I10 Essential (primary) hypertension; Z86.32 Personal history of gestational diabetes
CPT/HCPCS: 80053; 81025; 99284; 74176; 81003; 81015; 85025; 87086

== ENCOUNTER → 2024-01-18 00:13 | Outpatient (CLI) | payer BC, SELFPAY ==
--- NOTE | 2024-01-18 07:30 | DI.MAMMO_ITS ---
Exam(s) US BREAST LT COMPLETE MAMMO DIAGNOSTIC BI EXAM: MAMMO DIAGNOSTIC BI and U/S breast LT complete CLINICAL HISTORY: 5x6cm mass, upper inner quad,LT BREAST MASS, N63.20. TECHNIQUE: Craniocaudal and mediolateral oblique Full Field Digital Mammography views with Computer Aided Diagnosis followed by Tomosynthesis and left breast ultrasound. COMPARISON: This is a baseline examination. FINDINGS: Mammography/Tomosynthesis: Masses/Architectural Distortion: There is a 2.5 cm spiculated mass in the upper inner quadrant of the left breast there are associated microcalcifications. No suspicious masses are seen in the right br east. Microcalcifictions: No suspicious pleomorphic-type are seen. Skin Thickening/Nipple Retraction: None. Complete left breast US: Echotexture: Normal appearance of the glandular tissue. Shadowing: No suspicious foci. Cyst: None. Solid lesions: There is a spiculated hypoechoic shadowing structure at the 10 o'clock position of the left breast 8 cm from the nipple which corresponds to the mammographic/palpable abnormality. It amita sures 2.2 x 1.7 x 2.3 cm. Ductal dilation: None. IMPRESSION: 1. 2.5 cm spiculated mass at the 10 o'clock position of the left breast highly suspicious for carcino ma. 2. Biopsy is recommended. 3. The findings were discussed with the patient on the date of the examination. Findings were discus sed with Dr. Mora at 1:50 p.m. on 01/18/2024. BI-RADS Category 5 - Highly Suggestive of Malignancy: Biopsy recommended Breast Density - Category B - Scattered areas of fibroglandular density Breast density Category C or D implies that the patient has dense breast tissue. Dense breast tissue can make it harder to find cancer on a mammogram. Dense breast tissue is also associated with an incr eased risk of breast cancer. This information about the result of the mammogram report was provided to the patient to raise their awareness. Use this report when you speak with the patient about their risks for breast cancer, which includes their family history. At that time, you may recommend additional screening tests (Ultrasoun d or MRI) as these tests may add significant information. A negative radiographic report should not delay biopsy if a dominant or clinically suspicious mass is present. Up to ten percent of cancers are not identified on mammography. A negative report may reinforce clinical impression. Adenosis and dense breasts may obscure an underlying neoplasm. False positive reports average 6 to 10%. Patient will receive a letter notifying them of these results.
== END ==
PROVIDERS: PCP Nurse Practitioner Family; Visit Provider Nurse Practitioner Women's Health
DX: N63.21 Unspecified lump in the left breast, upper outer quadrant (principal); Z12.31 Encounter for screening mammogram for malignant neoplasm of breast
CPT/HCPCS: 76642; 77062; 77066; G0279

== ENCOUNTER 2024-03-26 22:10 | Outpatient (CLI) | payer BC, SELFPAY ==
[2024-03-26 16:42] LABS: Abs Immature Grans 0.18 10^3/uL (0.0-0.06); Absolute Basophil Count 0.05 10^3/uL (0.0-0.2); Absolute Eosinophil Count 0.01 10^3/uL (0.0-0.7); Absolute Lymphocyte Count 2.09 10^3/uL (1.2-3.4); Absolute Neutrophil Count 6.46 10^3/uL (1.2-6.7); Basophils % 0.5 %; Eosinophils % 0.1 %; HCT 33.2 % (36.0-46.0); HGB 11.1 g/dL (11.2-15.7); Immature Grans % 1.9 %; Lymphocytes % 22.3 %; MCH 27.8 pg (27.0-33.0); MCHC 33.4 % (32.0-36.0); MCV 83 fL (80-95); MPV 8.3 fL (8.0-11.0); Monocytes % 6.4 %; Neutrophils % 68.8 %; Platelet Count 152 10^3/uL (130-400); WBC 9.39 10^3/uL (4.4-10.8)
[2024-03-26 17:12] LABS: ALT 31 U/L (14-59); AST 17 U/L (15-37); Albumin 2.8 g/dL (3.4-5.0); Alkaline Phosphatase 75 U/L (46-116); Anion Gap 7.9 mmol/L (3-11); BUN 15 mg/dL (7-18); Bilirubin, Total 0.16 mg/dL (0.2-1.0); CO2 29.1 mmol/L (21.0-32.0); CREATININE 1.2 mg/dL (0.55-1.02); Calcium 8.7 mg/dL (8.5-10.1); Chloride 103 mmol/L (98-107); Glucose 117 mg/dL (74-106); Potassium 3.5 mmol/L (3.5-5.1); Sodium 140 mmol/L (136-145); Total Protein 6.7 g/dL (6.4-8.2)
== END 2024-03-26 22:11 | disposition home or self-care (01) ==
LOC: LBO 22:11
PROVIDERS: PCP Nurse Practitioner Family; Visit Provider Registered Nurse School
DX: C50.919 Malignant neoplasm of unspecified site of unspecified female breast (principal); C50.212 Malignant neoplasm of upper-inner quadrant of left female breast; Z17.1 Estrogen receptor negative status [ER-]
CPT/HCPCS: 36415; 80053; 85025